=== PATIENT | female | born 1955 | race Caucasian/White ===

== ENCOUNTER → 2022-08-03 | Outpatient (CLI) | payer OTHER ==
--- NOTE | 2022-08-03 19:11 | Diagnostic Imaging Report ---
INDICATION: Routine screening. COMPARISON is made with prior mammograms 02/10/2016 and 10/29/2014. 2-D and 3-D bilateral screening mammography was performed with CAD. Both breasts are heterogeneously dense, limiting the sensitivity of mammography. A nodular density in the medial left breast is stable. Additional nodular densities in the left breast are stable. No new mass or malignant-appearing microcalcifications are seen. Axillae are unremarkable. IMPRESSION: BI-RADS Category 2 No mammographic features suspicious for malignancy are identified. ACR BI-RADS Category 2: Benign findings. Result letter will be mailed to the patient. Note: At least 10% of breast cancer is not imaged by mammography. Dictated by: Dictated on workstation # [id number]
== END ==
LOC: RAD 14:29
PROVIDERS: ATTEND Nurse Practitioner Family
DX: Z12.31 Encounter for screening mammogram for malignant neoplasm of breast (principal)
CPT/HCPCS: 77063; 77067

== ENCOUNTER → 2022-08-17 | Outpatient (CLI) | payer OTHER ==
[~2022-08-17] MED LIST: ASPI-999 PO; LOSA50TA63 PO; OMEP40CA6 PO
--- NOTE | 2022-08-18 09:10 | Diagnostic Imaging Report ---
CT Lung Screening INDICATION:67-year-old female, history of 35 pack years of smoking. Screening for lung cancer. TECHNIQUE: Noncontrast, low-dose CT imaging performed according to the lung cancer screening protocol. Auto Exposure Controls were utilize during the CT exam to meet ALARA standards for radiation dose reduction. COMPARISON:Chest radiographs October 29, 2014. FINDINGS: There is a large mass involving the right lower lobe, right upper lobe, and likely portions of the right middle lobe as well. The mass measures roughly 6.1 x 5.1 cm in axial extent and has a craniocaudal extent of approximately 8.6 cm. Mass directly abuts right-sided bronchi. There are contiguous areas of nodular septal thickening in the right lower lobe most likely relating to extension of malignancy. There are additional predominantly linear opacities in the right lower lobe likely reflecting atelectasis and/or scarring. There are also contiguous areas of fairly linear opacification in the right upper lobe which could relate to spread of malignancy versus adjacent atelectasis. There is an additional nodular opacity in the right upper lobe on axial image 47 posteriorly measuring 9 mm in size most likely relating to extension of malignancy at this site. There are findings of emphysema. There is a large calcified left lower lobe nodule measuring 1.8 cm in size most consistent with benign etiology and likely reflecting sequela of prior granulomatous disease. There is no identified noncalcified left-sided pulmonary nodule or lung mass. There is no additional identified focal airspace consolidation. There is no pneumothorax. There is no pleural effusion. The heart is not enlarged. There is no pericardial effusion. There are coronary artery calcifications and additional areas of atherosclerotic disease. The right-sided lung mass directly extends in the right hilar region. There is a right peritracheal lymph node on axial image 36 which measures 8 mm in short axis. There is no identified abnormally enlarged axillary lymph node which meets CT size criteria for adenopathy. There are splenic calcifications compatible with a sequela of prior granulomatous disease. There is no identified bone lesion concerning for a bone metastasis. IMPRESSION: 1. Very large right-sided lung mass involving the right lower lobe and right upper lobe and likely portions of the right middle lobe directly extending into the right hilar region highly likely reflecting malignancy. Sampling for definitive diagnosis is recommended. 2. Indeterminate 8 mm short axis right paratracheal lymph node. 3. No identified left-sided noncalcified pulmonary nodule or lung mass. 4. Findings of emphysema. 5. Findings compatible sequela prior granulomatous disease. LUNG-RADS CATEGORY:4B. Sampling for definitive diagnosis is recommended. Dictated by: Dictated on workstation # [id number]
== END ==
LOC: RAD 13:15
PROVIDERS: ATTEND Nurse Practitioner Family
DX: Z12.2 Encounter for screening for malignant neoplasm of respiratory organs (principal); J43.9 Emphysema, unspecified; R91.8 Other nonspecific abnormal finding of lung field; Z87.891 Personal history of nicotine dependence
CPT/HCPCS: 71271

== ENCOUNTER 2022-08-19 05:35 | Outpatient (CLI) | payer OTHER ==
[~2022-08-19] VITALS: Ht 157.5 cm; Wt 45.4 kg
[2022-08-19] MEDS ORDERED: LOSA50TA63 PO (11:28)
[2022-08-19] MEDS ORDERED: ASPI-999 PO (11:28)
[2022-08-19] MEDS ORDERED: OMEP40CA6 PO (11:28)
== END 2022-08-19 11:26 | disposition home or self-care (01) ==
LOC: PREOP 05:35
PROVIDERS: ATTEND Internal Medicine
DX: Z01.818 Encounter for other preprocedural examination (principal)

== ENCOUNTER 2022-08-28 07:37 | Day surgery (SDC) | payer OTHER ==
--- NOTE | 2022-08-16 02:19 | HISTORY AND PHYSICAL ---
DATE OF SERVICE: COLONOSCOPY HISTORY AND PHYSICAL DATE OF ADMISSION: 08/28/2022 HISTORY OF PRESENT ILLNESS: The patient is a 67-year-old white female referred by Dr. Quintanilla for her first screening colonoscopy. She is deemed to be of average risk as she is not aware of any family history for colon cancer. She denies abdominal pain. Does have some occasional constipation with no diarrhea and has had no melena or bright red blood per rectum. She denies any change in weight. PAST MEDICAL HISTORY: Significant for hypertension and gastroesophageal reflux, which is really well controlled on omeprazole. She reportedly has had some diverticulitis, but did not require hospitalization, but the oral antibiotics, it has been a number of months since her last flare. PAST SURGICAL HISTORY: She had an episiotomy following delivery that required revision several years ago. SOCIAL HISTORY: She is . 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 Occasional small volume alcohol use. FAMILY HISTORY: Mother had breast cancer, postmenopausal. Has one sister with hypertension. No other reported cancers in the family. REVIEW OF SYSTEMS: CONSTITUTIONAL: Denies night sweats, chills, fever, or change in weights. PULMONARY: Reports stable dyspnea on exertion, no dyspnea at rest. No cough, minimal nonpurulent sputum production, no hemoptysis. CARDIOVASCULAR: Denies chest pain, orthopnea, PND or pedal edema. PHYSICAL EXAMINATION: GENERAL: Reveals a white female, normal weight, in no acute distress, 100 pounds. VITAL SIGNS: Blood pressure 134/58. HEENT: Unremarkable. Sclerae nonicteric. CHEST: Clear. CARDIOVASCULAR: Reveals a regular rate and rhythm without murmur, S3 or S4. ABDOMEN: Soft, supple without mass, organomegaly or tenderness. EXTREMITIES: Reveal no cyanosis, clubbing or edema. ASSESSMENT AND PLAN: The patient is being set up for her first screening colonoscopy, deemed to be of average risk as noted above. Prep instructions were given, and questions were answered. I thank you for the referral of this pleasant lady. Job ID: [id number] DocumentID: [id number] Dictated Date: 08/04/2022 09:49:50 Carry In Worker Date: 08/04/2022 10:12:27 Dictated By: SHAREE JENSEN MD
[~2022-08-28] VITALS: Ht 157.5 cm; Wt 45.4 kg
[2022-08-28] MEDS ORDERED: LACTATED RINGERS 1,000 ML IV STA (07:41)
--- NOTE | 2022-08-28 08:01 | Pre-Op Note & Conscious Sedat ---
Pre-Operative Progress Note Date H&P Reviewed: Aug 28, 2022 Time H&P Reviewed: 08:01 History & Physical: H&P Reviewed, Patient Examed, No changes noted Pre-Op Diagnosis: screening Conscious Sedation Pre-Proced ASA Score 1 For ASA 3 and 4: Consider anesthesia and medical clearance. Also, for patients with a history of failed moderate sedation consider anesthesia. Airway Lungs Heart ASA score ASA 1: a normal healthy patient ASA 2: a patient with a mild systemic disease (mid diabetes, controlled hypertension, obesity ASA 3: a patient with a severe systemic disease that limits activity (angina, COPD, prior Myocardial infarction) ASA 4: a patient with an incapacitating disease that is a constant threat to life (CHF, renal failure) ASA 5: a moribund patient not expected to survive 24 hrs. (ruptured aneurysm) ASA 6: a declared brain- patient whose organs are being harvested. For emergent operations, add the letter E after the classification Mallampati Classification Grade 2 Sedation Plan Analgesia, Amnesia, Plan communicated to team members, Discussed options with patient/fam, Discussed risks with patient/fam The patient is an appropriate candidate to undergo the planned procedure, sedation, and anesthesia. The patient immediately re-assessed prior to indication. SHAREE JENSEN MD Aug 28, 2022 08:01
[2022-08-28 08:03] VITALS: BP 137/76
[2022-08-28] MEDS ORDERED: PROPOFOL INJECTION 50 ML IV ONE (08:35)
[2022-08-28 09:13] VITALS: BP 134/65
--- NOTE | 2022-08-28 09:14 | Progress Note-Post Operative ---
Post-Procedure Note Physician (s)/Independent Sales Representative (s) Physician SHAREE JENSEN MD Pre-Procedure Diagnosis Pre-Procedure Diagnosis: screening Post-Procedure Diagnosis Post-operative diagnosis: Colonoscopy was performed for screening purposes. Prior to undergoing colonoscopy digital rectal evaluation was performed. Anal sphincter tone was normal and the perianal reflexes intact. No abnormalities noted on digital inspection of the anal canal or distal rectal vault. The colonoscope was then inserted into the rectum and under direct visualization advanced to the cecum. The cecum was identified by identification of the cecal strap and appendiceal orifice. A careful inspection was made as the colonoscope was withdrawn. Quality of the prep was good. Findings: There are no evidence for internal or external hemorrhoids and the rectum was unremarkable. Moderate to severe diverticular disease while most prevalent in the cecum was noted throughout the colon including numerous diverticulum of the ascending colon without evidence for diverticulitis. There was no evidence for neoplasia or any other abnormality on colonoscopy today. A/P 1. Moderate to severe diverticular disease predominantly in the sigmoid colon as well as a sending colon with an otherwise normal colonoscopy to the cecum. There was no endoscopic evidence to suggest underlying diverticulitis. Would advocate consideration for repeat screening colonoscopy in 10 years. Sincerely Sharee Jensen MD. SHAERE JENSEN MD Aug 28, 2022 09:14
[2022-08-28 09:30] VITALS: BP 134/65
[2022-08-28 09:40] VITALS: BP 134/65
--- NOTE | 2022-08-28 11:28 | Anesthesia-General Post-Op ---
MAC Patient Condition Mental Status/LOC: Same as Preop Cardiovascular: Satisfactory Nausea/Vomiting: Absent Respiratory: Satisfactory Pain: Controlled Complications: Absent Post Op Complications Complications None Follow Up Care/Instructions Patient Instructions None needed. Anesthesiology Discharge Order Discharge Order Patient was doing well this morning after the procedure with no complaints, stable vital signs, no apparent adverse anesthesia problems. No complications reported per nursing. STEPHEN GARCIA DO Aug 28, 2022 11:28
== END 2022-08-28 09:50 | disposition home or self-care (01) ==
LOC: ENDO 07:37
PROVIDERS: ATTEND Internal Medicine
DX: Z12.11 Encounter for screening for malignant neoplasm of colon (principal); K57.30 Diverticulosis of large intestine without perforation or abscess without bleeding; K21.9 Gastro-esophageal reflux disease without esophagitis; Z79.899 Other long term (current) drug therapy; Z87.891 Personal history of nicotine dependence; Z28.310 Unvaccinated for COVID-19

== ENCOUNTER 2022-09-03 08:45 | Outpatient (CLI) | payer OTHER ==
[~2022-09-03] VITALS: Ht 157.5 cm; Wt 45.5 kg
[2022-09-03] VITALS (8 sets, daily range): BP systolic 112–151; BP diastolic 53–80
[2022-09-03] MEDS ORDERED: LOSA100T57 PO (09:02)
[2022-09-03 09:22] LABS: HEMATOCRIT 43 % (35-52); HEMOGLOBIN 13.9 g/dL (11.5-16.0); MEAN CORPUSCULAR HEMOGLOBIN 28 pg (25-34); MEAN CORPUSCULAR HGB CONC 32 g/dL (32-36); MEAN CORPUSCULAR VOLUME 86 fL (80-99); MEAN PLATELET VOLUME 9.5 fL (9.0-12.2); PLATELET COUNT 419 10^3/uL (130-400); WHITE BLOOD COUNT 11.6 10^3/uL (4.3-11.0)
[2022-09-03 09:39] LABS: PROTHROMBIN TIME PATIENT 13.7 SEC (12.2-14.7)
[2022-09-03] MEDS ORDERED: NS IV 1000 ML 1,000 ML IV STA (09:41)
[2022-09-03] MEDS ORDERED: MIDAZOLAM 2 MG/2 ML (VERSED) VIAL ONE (09:45)
[2022-09-03] MEDS ORDERED: MIDAZOLAM 2 MG/2 ML (VERSED) VIAL IVP ONE (09:45)
[2022-09-03] MEDS ORDERED: fentaNYL INJ 100 MCG/2 ML AMP IVP ONE (09:45)
[2022-09-03] MEDS ORDERED: LIDOCAINE 1% INJ 10 ML VIAL ONE (09:45)
[2022-09-03] MEDS ORDERED: fentaNYL INJ 100 MCG/2 ML AMP ONE (09:45)
[2022-09-03] MEDS ORDERED: LIDOCAINE 1% INJ 20 ML VIAL INJ ONE (09:45)
[2022-09-03] MEDS ORDERED: NS IV 1000 ML 1,000 ML ONE (09:45)
[2022-09-03] MEDS ORDERED: HYDROcodone/APAP 5 MG/325 MG (LORTAB) TAB PO PRN (10:45)
--- NOTE | 2022-09-03 12:00 | Pre-Op Note & Conscious Sedat ---
Pre-Operative Progress Note Date of Available H&P: Sep 03, 2022 Date H&P Reviewed: Sep 03, 2022 Time H&P Reviewed: 09:00 Pre-Op Diagnosis: lung mass Conscious Sedation Pre-Proced Time 09:00 ASA Score 2 For ASA 3 and 4: Consider anesthesia and medical clearance. Also, for patients with a history of failed moderate sedation consider anesthesia. Airway Lungs Heart ASA score ASA 1: a normal healthy patient ASA 2: a patient with a mild systemic disease (mid diabetes, controlled hypertension, obesity ASA 3: a patient with a severe systemic disease that limits activity (angina, COPD, prior Myocardial infarction) ASA 4: a patient with an incapacitating disease that is a constant threat to life (CHF, renal failure) ASA 5: a moribund patient not expected to survive 24 hrs. (ruptured aneurysm) ASA 6: a declared brain- patient whose organs are being harvested. For emergent operations, add the letter E after the classification Mallampati Classification Grade 2 Sedation Plan Analgesia, Amnesia, Plan communicated to team members, Discussed options with patient/fam, Discussed risks with patient/fam The patient is an appropriate candidate to undergo the planned procedure, sedation, and anesthesia. The patient immediately re-assessed prior to indication. TIA HUTCHINSON MD Sep 03, 2022 12:00
--- NOTE | 2022-09-03 12:25 | Diagnostic Imaging Report ---
INDICATION: Right lung mass. Patient presents for CT-guided biopsy. TECHNIQUE: All CT scans use one or more of the following dose optimizing techniques: automated exposure control, MA and/or KvP adjustment based on patient size and exam type or iterative reconstruction. The patient brought to the CT suite placed on table in the left side down decubitus position. Axial imaging through the chest was performed to evaluate appropriate entry site. The right posterior thorax was prepped and draped in usual sterile fashion. Procedure was performed utilizing conscious sedation with radiology nursing and constant patient monitoring. Patient was administered 2 mg of Versed intravenously and 50 micrograms of fentanyl intravenously. Total procedure time approximately 12 minutes. Small amount of 1% lidocaine was utilized for local anesthesia. 18-gauge coaxial Temno needle was advanced and placed with its tip along the margin of the mass in the right suprahilar region. 4 core biopsies were obtained. A blood patch was injected during needle removal. Follow-up imaging shows no complicating features. No pneumothorax is detected. Patient tolerated procedure well and was sent to same day surgery in satisfactory condition. Patient will get chest x-ray in 2 hours to assess for pneumothorax. IMPRESSION: Successful CT-guided right lung biopsy utilizing conscious sedation. Pathology results are currently pending. Dictated by: Dictated on workstation # [id number]
--- NOTE | 2022-09-03 14:59 | Diagnostic Imaging Report ---
Indication: Right lung biopsy earlier today. Time of Exam: 12:35 PM Expiratory radiograph of the chest was obtained. No pneumothorax is identified, status post right lung mass biopsy. Mass in the right perihilar region is noted. Calcified nodule in the left lower lobe is noted. IMPRESSION: No evidence of pneumothorax, status post right lung mass biopsy. Dictated by: Dictated on workstation # [id number]
== END 2022-09-03 13:20 | disposition home or self-care (01) ==
LOC: SDC 08:45
PROVIDERS: ATTEND Nurse Practitioner Family
DX: R91.8 Other nonspecific abnormal finding of lung field (principal)
CPT/HCPCS: 36415; 71045; 77012; 85027; 85610; 85730

== ENCOUNTER 2022-09-21 08:30 | Outpatient (CLI) | payer OTHER ==
[~2022-09-21] VITALS: Ht 156.2 cm; Wt 45.5 kg
[2022-09-21] VITALS (15 sets, daily range): BP systolic 105–146; BP diastolic 56–85
[~2022-09-21 08:30] MED LIST changes: +LOSA100T57 PO
[2022-09-21] MEDS ORDERED: NS IV 1000 ML 1,000 ML IV STA (09:00)
[2022-09-21] MEDS ORDERED: LIDOCAINE 1% INJ 30 ML (XYLOCAINE) VIAL INJ ONE (09:00)
[2022-09-21] MEDS ORDERED: MIDAZOLAM 2 MG/2 ML (VERSED) VIAL IVP ONE (09:00)
[2022-09-21] MEDS ORDERED: fentaNYL INJ 100 MCG/2 ML AMP IVP ONE (09:00)
[2022-09-21] MEDS ORDERED: HYDROcodone/APAP 5 MG/325 MG (LORTAB) TAB PO PRN (10:30)
--- NOTE | 2022-09-21 11:41 | Pre-Op Note & Conscious Sedat ---
Pre-Operative Progress Note Date of Available H&P: Sep 21, 2022 Date H&P Reviewed: Sep 21, 2022 Time H&P Reviewed: 09:00 Pre-Op Diagnosis: lung mass Conscious Sedation Pre-Proced Time 09:00 ASA Score 2 For ASA 3 and 4: Consider anesthesia and medical clearance. Also, for patients with a history of failed moderate sedation consider anesthesia. Airway Lungs Heart ASA score ASA 1: a normal healthy patient ASA 2: a patient with a mild systemic disease (mid diabetes, controlled hypertension, obesity ASA 3: a patient with a severe systemic disease that limits activity (angina, COPD, prior Myocardial infarction) ASA 4: a patient with an incapacitating disease that is a constant threat to life (CHF, renal failure) ASA 5: a moribund patient not expected to survive 24 hrs. (ruptured aneurysm) ASA 6: a declared brain- patient whose organs are being harvested. For emergent operations, add the letter E after the classification Mallampati Classification Grade 2 Sedation Plan Analgesia, Amnesia, Plan communicated to team members, Discussed options with patient/fam, Discussed risks with patient/fam The patient is an appropriate candidate to undergo the planned procedure, sedation, and anesthesia. The patient immediately re-assessed prior to indication. TIA HUTCHINSON MD Sep 21, 2022 11:41
--- NOTE | 2022-09-21 13:57 | Diagnostic Imaging Report ---
INDICATION: Status post right lung biopsy. TIME OF EXAM: 11:57 AM. COMPARISON: Correlation is made with the prior chest of 09/03/2022. FINDINGS: The right hilar mass is again noted. There is no pneumothorax status post right lung biopsy this morning. The calcified nodule in the left base is stable. There is no effusion. IMPRESSION: No evidence of pneumothorax status post right lung biopsy. Dictated on workstation # [id number]
--- NOTE | 2022-09-21 14:12 | Diagnostic Imaging Report ---
INDICATION: Right lung mass. Patient presents for repeat right lung biopsy. TECHNIQUE: All CT scans use one or more of the following dose optimizing techniques: automated exposure control, MA and/or KvP adjustment based on patient size and exam type or iterative reconstruction. Patient brought to the CT suite placed on table in the prone position. Axial imaging through the chest was performed to evaluate appropriate entry site. The right posterior thorax was prepped and draped in usual sterile fashion. Procedure was performed utilizing conscious sedation with radiology nursing and constant patient monitoring. Patient was given a total of 100 mcg of fentanyl intravenously and 1 mg of Versed intravenously. Total procedure time approximately 10 minutes. Small amount of 1% lidocaine was utilized for local anesthesia. 18-gauge coaxial Temno needle was advanced from a posterior approach and placed into the large right lower lobe mass along the periphery. A total of 4 core biopsies were obtained. The Biosentry closure device was then utilized to close the pleura. Followup imaging shows no complicating features. No pneumothorax is seen. Patient tolerated the procedure well and left the department in stable condition. IMPRESSION: Successful CT-guided core biopsy of the large right lower lobe mass, utilizing conscious sedation. Pathology results are currently pending. Dictated on workstation # [id number]
== END 2022-09-21 12:45 | disposition home or self-care (01) ==
LOC: SDC 08:30 → RAD 12:45
PROVIDERS: ATTEND Family Medicine
DX: R91.8 Other nonspecific abnormal finding of lung field (principal)
CPT/HCPCS: 71045; 77012; 99156; C2613

== ENCOUNTER → 2022-10-07 | Outpatient (CLI) | payer OTHER ==
[~2022-10-07] MED LIST changes: +GADOTERATE 0.5 MMOL/ML (CLARISCAN) 15 ML VIAL IV ONE
--- NOTE | 2022-10-07 11:41 | Diagnostic Imaging Report ---
CLINICAL INDICATION: Patient newly diagnosed with lung cancer. Cancer workup. EXAM: MRI of the brain performed without and with 8 cc of IV contrast. Sequences include axial DWI, ADC map, coronal gradient echo, axial FLAIR, axial T1, axial T2, axial T1 post IV contrast whole brain, coronal T1 fat-sat post IV contrast whole brain, and sagittal T1 fat-sat post IV contrast whole brain. COMPARISON: None. FINDINGS: There is no evidence of acute cerebral infarct, intracranial hemorrhage, or gross mass effect. There is no abnormal IV contrast enhancement. The brain parenchymal volume appears appropriate for patient's age. There are multiple focal and patchy areas of high T2 signal white matter changes involving both cerebral hemispheres and periventricular regions, likely representing chronic small vessel ischemic disease and leukoaraiosis. There is normal mello-white matter distinction. There is no significant midline shift or herniation. The tejon of [place] vascular structures show no gross abnormality as visualized. There is no evidence of hydrocephalus. The basal cisterns are unremarkable. The skull, extracranial soft tissue, and orbits are unremarkable. There is mild mucosal thickening involving the frontal sinus and anterior right ethmoid sinus region. There is minimal fluid within the right mastoid air cells. IMPRESSION: 1: There is no evidence of an acute intracranial process. There is no abnormal IV contrast enhancement and no evidence of metastatic disease. 2: Age-related brain parenchymal changes including chronic small vessel ischemic disease and leukoaraiosis. 3: Mild paranasal sinus disease. Dictated by: Dictated on workstation # [id number]
== END ==
LOC: RAD 09:09
PROVIDERS: ATTEND Internal Medicine Hematology & Oncology
DX: C34.90 Malignant neoplasm of unspecified part of unspecified bronchus or lung (principal); I67.82 Cerebral ischemia; I67.81 Acute cerebrovascular insufficiency; J32.9 Chronic sinusitis, unspecified
CPT/HCPCS: 70553

== ENCOUNTER → 2022-10-12 | Outpatient (CLI) | payer OTHER ==
[~2022-10-12] MED LIST changes: -GADOTERATE 0.5 MMOL/ML (CLARISCAN) 15 ML VIAL IV ONE
--- NOTE | 2022-10-12 16:13 | Diagnostic Imaging Report ---
INDICATION: [id number] lung cancer, initial staging. TECHNIQUE: Serum blood glucose level at the time of injection is 98 mg/dL. Patient was administered 14.3 mCi F-18 FDG intravenously and whole body PET imaging was performed. In addition, noncontrast CT was performed for attenuation correction and anatomic correlation. COMPARISON: No prior PET/CT studies are available for comparison. Comparison is made with CT chest screening study from 08/17/2022. FINDINGS: There is symmetric activity throughout the brain. Soft tissues of the neck are unremarkable. The previously noted large mass involving the right upper and right lower lobe does appear to be hypermetabolic with an SUV max of approximately 20. This does abut the right hilum. The left hilum is unremarkable. No definite mediastinal hypermetabolism is seen. No other pulmonary parenchymal areas of hypermetabolism are detected. Abdomen and pelvis demonstrate physiologic activity throughout the GI and tract. No suspicious sites of hypermetabolism are identified. Bilateral lower extremities are unremarkable. IMPRESSION: Hypermetabolic mass in the medial right upper and right lower lobe corresponding with known lung malignancy. No mediastinal, left hilar or distant metastases are identified. Dictated by: Dictated on workstation # [id number]
== END ==
LOC: RAD 09:00
PROVIDERS: ATTEND Internal Medicine Hematology & Oncology
DX: C34.90 Malignant neoplasm of unspecified part of unspecified bronchus or lung (principal)
CPT/HCPCS: 78816; A9552

== ENCOUNTER 2022-10-21 10:02 | Outpatient (RCR) | payer OTHER ==
[2022-10-14 10:08] LABS: BASOPHILS % (AUTO) 0 % (0-10); EOSINOPHILS # (AUTO) 0.1 10^3/uL (0.0-0.3); EOSINOPHILS % (AUTO) 1 % (0-10); HEMATOCRIT 43 % (35-52); HEMOGLOBIN 13.8 g/dL (11.5-16.0); LYMPHOCYTES # (AUTO) 1.4 10^3/uL (1.0-4.0); LYMPHOCYTES % (AUTO) 16 % (12-44); MEAN CORPUSCULAR HEMOGLOBIN 27 pg (25-34); MEAN CORPUSCULAR HGB CONC 32 g/dL (32-36); MEAN CORPUSCULAR VOLUME 86 fL (80-99); MEAN PLATELET VOLUME 9.4 fL (9.0-12.2); MONOCYTES # (AUTO) 0.5 10^3/uL (0.0-1.0); MONOCYTES % (AUTO) 5 % (0-12); NEUTROPHILS # (AUTO) 7.1 10^3/uL (1.8-7.8); NEUTROPHILS % (AUTO) 78 % (42-75); PLATELET COUNT 410 10^3/uL (130-400); WHITE BLOOD COUNT 9.1 10^3/uL (4.3-11.0)
[2022-10-14 10:25] LABS: ALBUMIN 4.1 GM/DL (3.2-4.5); BILIRUBIN,TOTAL 0.2 MG/DL (0.1-1.0); CALCIUM 9.7 MG/DL (8.5-10.1); CREATININE SERUM 0.73 MG/DL (0.60-1.30); POTASSIUM 4.4 MMOL/L (3.6-5.0)
[~2022-10-21] VITALS: Ht 157.5 cm; Wt 46.7 kg
== END 2022-10-24 | disposition home or self-care (01) ==
LOC: ONC 10:02
PROVIDERS: ATTEND Internal Medicine Hematology & Oncology
DX: C34.91 Malignant neoplasm of unspecified part of right bronchus or lung (principal)
CPT/HCPCS: 36415; 77290; 77334; 80053; 85025; 99204; 99205; 99213

== ENCOUNTER 2022-10-23 07:28 | Outpatient (CLI) | payer OTHER ==
[~2022-10-23] VITALS: Ht 157 cm; Wt 45.5 kg
== END 2022-10-23 12:23 | disposition home or self-care (01) ==
LOC: PREOP 07:28
PROVIDERS: ATTEND Surgery
DX: Z01.818 Encounter for other preprocedural examination (principal)

== ENCOUNTER 2022-10-30 07:07 | Day surgery (SDC) | payer BC, OTHER ==
[2022-10-30] VITALS (7 sets, daily range): BP systolic 99–113; BP diastolic 53–64
[~2022-10-30] VITALS: Ht 157 cm; Wt 45.5 kg
[2022-10-30] MEDS ORDERED: LACTATED RINGERS 1,000 ML IV PRN (07:15)
[2022-10-30] MEDS ORDERED: ceFAZolin INJECTION 1,000 MG in NS (IVPB) 50 ML IV ONE (07:15)
[2022-10-30] MEDS ORDERED: 0.9% SODIUM CHLORIDE PF INJ 20 ML VIAL ONE (07:46)
[2022-10-30] MEDS ORDERED: HEParin (CENTRAL IV FLUSH) 500 UNIT/5 ML SYR ONE (07:46)
[2022-10-30] MEDS ORDERED: BUP/EPI 0.25% 1:200,000 (MARCAINE) 30 ML VIAL ONE (07:46)
[2022-10-30] MEDS ORDERED: fentaNYL INJ 100 MCG/2 ML AMP ONE (08:53)
[2022-10-30] MEDS ORDERED: PROPOFOL INJECTION 50 ML IV ONE (08:53)
[2022-10-30] MEDS ORDERED: MIDAZOLAM 2 MG/2 ML (VERSED) VIAL ONE (08:54)
--- NOTE | 2022-10-30 09:56 | Progress Note-Pre Operative ---
Pre-Operative Progress Note Date of Available H&P: Oct 22, 2022 Date H&P Reviewed: Oct 30, 2022 Time H&P Reviewed: 09:31 History & Physical: H&P Reviewed, Patient Examed, No changes noted Pre-Operative Diagnosis: Lung CA, venous insufficiency DC KULKARNI DO Oct 30, 2022 09:56
[2022-10-30] MEDS ORDERED: PHENYLEPHRINE 100 MCG/ML 10 ML (ANESTHESIA) SYR ONE (11:32)
--- NOTE | 2022-10-30 11:38 | Progress Note-Post Operative ---
Post-Operative Progess Note Surgeon (s)/Community Artist (s) Surgeon DC KULKARNI DO Community Artist: MALCOLM Tidwell Pre-Operative Diagnosis Lung CA, venous insufficiency Post-Operative Diagnosis same Procedure & Operative Findings Date of Procedure 10/30/22 Procedure Performed/Findings PROCEDURE: Pasquale-Cath Placement The patient was taken to the operating suite, was prepped and draped in a sterile fashion. A surgical pause was performed. Local anesthetic was infiltrated at the clavicle and along the tract to the left anterior chest, where more local was placed so the pocket could be created. Using an 18 gauge finder needle with negative inspiration the left subclavian vein was accessed on the first attempt and dark nonpulsatile blood was withdrawn. The wire was inserted and fluoroscopy assured proper placement. The needle was removed. Fluoroscopy assured proper placement. The wire was then secured. A #11 blade scalpel was used to make an incision over the right chest and at the guidewire. Cautery was used to dissect down to the pectoral fascia. A pocket was created with blunt dissection. The dilator sheath was then advanced over the wire under fluoroscopy and the dilator and wire were removed. The Groshong catheter was inserted through the sheath and the sheath was then removed. The Groshong wire was removed. The catheter was then tunneled to the right chest pocket. Fluoroscopy was used to cut to length and this was then attached to the port which was then placed within the pocket. The port was then accessed without difficulty. It was then flushed with saline and then heparin. The subcutaneous tissues were then reapproximated using 3-0 Vicryl. Finally the skin was closed with 4-0 undyed monocryl, 3 interrupted sutures. The areas were then washed and dried. Skin Affix was placed over incision. The insertion point of the neck Skin Affix was placed over the incision. The patient tolerated the procedure well without complication and was taken to recovery room in stable condition. Anesthesia Type IV sedation by TOUR DRIVER Estimated Blood Loss Estimated blood loss (mL): scant Specimens/Packing Specimens Removed none DC KULKARNI DO Oct 30, 2022 11:38
--- NOTE | 2022-10-30 11:39 | Discharge Inst-Surgical ---
Discharge Inst-Surgical Depart Medication/Instructions New, Converted or Re-Newed RX: Other (use home meds) Patient Instructions Follow up Appt: Make appointment for 1 week. [phone] Instructions: May shower in 24 hours, no tub bath or soaking. Use incentive spirometer at home as directed. No Smoking Skin/Wound Care: May remove bandages in am. You need to leave the Dermabond on incision it will fall off on it's own. Symptoms to Report: Appetite Changes, Extremity Discoloration, Numbness/Tingling, Swelling Increased, Bleeding Excessive, Eyesight Changes, Pain Increased, Urine Color Change, Constipation(Persistent), Fever over 101 degree F, Pain/Pressure in chest, Urinating Difficulty, Cough Up/Vomit Blood, Heart Beat Irreg/Pounding, P ain/Pressure in jaw, Cramps in feet or legs, Lightheadedness, Pain/Pressure in shoulder, Diarrhea(Persistent), Memory Changes Suddenly, Questions/Concerns, Weight gain consecutive days, Dizziness/Fainting, Nausea/Vomiting, Shortness of Breath, Weight gain over 2 pounds If questions or concerns contact your physician Or seek help at emergency department. Activity Activity as Tolerated: Yes Activity Instructions: Avoid Stress to Incision Driving Instructions: You May Drive Diet Discharge Diet: No Restrictions Diet After 24 Hours: Clear Liquid if Nauseous If Any Problems/Questions/Issu: Contact Your Physician, Go to Emergency Room Skin/Wound Care Infection Signs and Symptoms: Increased Redness, Foul Odor of Wound, Increased Drainage, Skin Itchy or Has a Rash, Increased Swelling, Temperature Above 101 F Bathing Instructions: Shower Stitches/Adenike/Dermabond Dis: Dermabond Ice Pack: Ice On and Off Site DC KULKARNI DO Oct 30, 2022 11:39
[2022-10-30] MEDS ORDERED: HYDROmorphone 2 MG/ML VIAL (DILAUDID) IV ONE (11:45)
[2022-10-30] MEDS ORDERED: ONDANSETRON 4 MG/2 ML (SDV) Z0FRAN IVP PRN (11:45)
--- NOTE | 2022-10-30 13:31 | Diagnostic Imaging Report ---
INDICATION: Port placement. COMPARISON: None. Total fluoroscopy time: 6 seconds Total number of fluoroscopic images saved: 2 FINDINGS: Multiple intraoperative image intensifier views of the chest were obtained during Port-A-Cath placement. Images provided show left subclavian approach. Central tip terminates in the right atrium. Evaluation for pneumothorax is suboptimal due to fluoroscopic modality. Please note, interpreting radiologist was not present during the procedure. IMPRESSION: 1. Fluoroscopic guidance provided during Port-A-Cath placement, as above. Dictated by: Dictated on workstation # [id number]
--- NOTE | 2022-10-30 14:26 | Anesthesia-General Post-Op ---
MAC Patient Condition Mental Status/LOC: Same as Preop Cardiovascular: Satisfactory Nausea/Vomiting: Absent Respiratory: Satisfactory Pain: Controlled Complications: Absent Post Op Complications Complications None Follow Up Care/Instructions Patient Instructions None needed. Anesthesiology Discharge Order Discharge Order Patient is doing well, no complaints, stable vital signs, no apparent adverse anesthesia problems. No complications reported per nursing. HERMAN RINCON CRNA Oct 30, 2022 14:26
== END 2022-10-30 13:00 | disposition home or self-care (01) ==
LOC: SDC 07:07
PROVIDERS: ATTEND Surgery
DX: C34.91 Malignant neoplasm of unspecified part of right bronchus or lung (principal); I87.2 Venous insufficiency (chronic) (peripheral); K21.9 Gastro-esophageal reflux disease without esophagitis; Z87.891 Personal history of nicotine dependence; Z79.899 Other long term (current) drug therapy; Z28.310 Unvaccinated for COVID-19
CPT/HCPCS: 36561; 76000; 87081; C1788

== ENCOUNTER → 2022-11-24 | Outpatient (RCR) | payer BC, MEDICARE ==
[2022-11-02 11:28] LABS: BASOPHILS % (AUTO) 0 % (0-10); EOSINOPHILS # (AUTO) 0.1 10^3/uL (0.0-0.3); EOSINOPHILS % (AUTO) 1 % (0-10); HEMATOCRIT 41 % (35-52); HEMOGLOBIN 13.5 g/dL (11.5-16.0); LYMPHOCYTES # (AUTO) 1.8 10^3/uL (1.0-4.0); LYMPHOCYTES % (AUTO) 15 % (12-44); MEAN CORPUSCULAR HEMOGLOBIN 28 pg (25-34); MEAN CORPUSCULAR HGB CONC 33 g/dL (32-36); MEAN CORPUSCULAR VOLUME 85 fL (80-99); MEAN PLATELET VOLUME 9.5 fL (9.0-12.2); MONOCYTES # (AUTO) 0.7 10^3/uL (0.0-1.0); MONOCYTES % (AUTO) 6 % (0-12); NEUTROPHILS # (AUTO) 9.4 10^3/uL (1.8-7.8); NEUTROPHILS % (AUTO) 78 % (42-75); PLATELET COUNT 427 10^3/uL (130-400); WHITE BLOOD COUNT 12.1 10^3/uL (4.3-11.0)
[2022-11-02 11:57] LABS: ALBUMIN 4.2 GM/DL (3.2-4.5); BILIRUBIN,TOTAL 0.3 MG/DL (0.1-1.0); CALCIUM 10.2 MG/DL (8.5-10.1); CREATININE SERUM 0.79 MG/DL (0.60-1.30); POTASSIUM 4.1 MMOL/L (3.6-5.0); TOTAL PROTEIN 8.3 GM/DL (6.4-8.2)
[2022-11-16 09:55] LABS: BASOPHILS % (AUTO) 0 % (0-10); EOSINOPHILS # (AUTO) 0.1 10^3/uL (0.0-0.3); EOSINOPHILS % (AUTO) 1 % (0-10); HEMATOCRIT 38 % (35-52); HEMOGLOBIN 12.2 g/dL (11.5-16.0); LYMPHOCYTES % (AUTO) 13 % (12-44); MEAN CORPUSCULAR HEMOGLOBIN 28 pg (25-34); MEAN CORPUSCULAR HGB CONC 32 g/dL (32-36); MEAN CORPUSCULAR VOLUME 87 fL (80-99); MEAN PLATELET VOLUME 9.4 fL (9.0-12.2); MONOCYTES # (AUTO) 0.5 10^3/uL (0.0-1.0); MONOCYTES % (AUTO) 7 % (0-12); NEUTROPHILS # (AUTO) 5.9 10^3/uL (1.8-7.8); NEUTROPHILS % (AUTO) 78 % (42-75); PLATELET COUNT 366 10^3/uL (130-400); WHITE BLOOD COUNT 7.5 10^3/uL (4.3-11.0)
[2022-11-16 10:28] LABS: ALBUMIN 3.8 GM/DL (3.2-4.5); BILIRUBIN,TOTAL 0.3 MG/DL (0.1-1.0); CALCIUM 9.9 MG/DL (8.5-10.1); CREATININE SERUM 0.72 MG/DL (0.60-1.30); POTASSIUM 4.2 MMOL/L (3.6-5.0); TOTAL PROTEIN 7.6 GM/DL (6.4-8.2)
[2022-11-23 09:58] LABS: BASOPHILS % (AUTO) 0 % (0-10); EOSINOPHILS # (AUTO) 0.1 10^3/uL (0.0-0.3); EOSINOPHILS % (AUTO) 1 % (0-10); HEMATOCRIT 35 % (35-52); HEMOGLOBIN 11.2 g/dL (11.5-16.0); LYMPHOCYTES # (AUTO) 0.8 10^3/uL (1.0-4.0); LYMPHOCYTES % (AUTO) 13 % (12-44); MEAN CORPUSCULAR HEMOGLOBIN 28 pg (25-34); MEAN CORPUSCULAR HGB CONC 32 g/dL (32-36); MEAN CORPUSCULAR VOLUME 87 fL (80-99); MEAN PLATELET VOLUME 9.7 fL (9.0-12.2); MONOCYTES # (AUTO) 0.4 10^3/uL (0.0-1.0); MONOCYTES % (AUTO) 8 % (0-12); NEUTROPHILS # (AUTO) 4.3 10^3/uL (1.8-7.8); NEUTROPHILS % (AUTO) 77 % (42-75); PLATELET COUNT 310 10^3/uL (130-400); WHITE BLOOD COUNT 5.6 10^3/uL (4.3-11.0)
[2022-11-23 10:42] LABS: ALBUMIN 3.6 GM/DL (3.2-4.5); BILIRUBIN,TOTAL 0.3 MG/DL (0.1-1.0); CALCIUM 9.7 MG/DL (8.5-10.1); CREATININE SERUM 0.71 MG/DL (0.60-1.30); POTASSIUM 4.1 MMOL/L (3.6-5.0); TOTAL PROTEIN 7.1 GM/DL (6.4-8.2)
[~2022-11-24] VITALS: Ht 157.5 cm; Wt 46.7 kg
[~2022-11-24] MED LIST changes: +CARBOPLATIN IV SCH; +D5W IV SCH; +FAMOTIDINE 20MG/2ML IV (PEPCID) IV PRN; +FOSAPREPITANT (CANCER CENTER) 150 MG in NS (IVPB) CANCER CENTER ONLY 150 ML IV SCH; +HEParin (CENTRAL IV FLUSH) 500 UNIT/5 ML SYR IV PRN; +NORMAL SALINE IV SCH; +NS IV 1000 ML (CANCER CTR) IV SCH; +PACLITAXEL IV SCH; +PALONOSETRON HCL 0.25 MG, dexAMETHasone INJECTION 10 MG in NS (IVPB) 50 ML IV SCH; +diphenhydrAMINE 25 MG TAB (BENADRYL) PO ONE; +diphenhydrAMINE 50 MG/ML INJ (BENADRYL) IV PRN
== END | disposition home or self-care (01) ==
LOC: ONC 10-29 09:25
PROVIDERS: ATTEND Internal Medicine Hematology & Oncology
DX: Z51.11 Encounter for antineoplastic chemotherapy (principal); Z51.0 Encounter for antineoplastic radiation therapy; Z45.2 Encounter for adjustment and management of vascular access device; C34.91 Malignant neoplasm of unspecified part of right bronchus or lung
CPT/HCPCS: 36591; 77280; 77295; 77300; 77334; 77336; 77386; 77417; 77470; 80053; 85025; 96367; 96375; 96413; 96417; 99213

== ENCOUNTER 2022-12-13 13:52 | Emergency (ER) | payer BC, MEDICARE ==
[~2022-12-13] VITALS: Ht 154.9 cm; Wt 44.4 kg
[~2022-12-13 13:52] MED LIST changes: -CARBOPLATIN IV SCH; -D5W IV SCH; -FAMOTIDINE 20MG/2ML IV (PEPCID) IV PRN; -FOSAPREPITANT (CANCER CENTER) 150 MG in NS (IVPB) CANCER CENTER ONLY 150 ML IV SCH; -HEParin (CENTRAL IV FLUSH) 500 UNIT/5 ML SYR IV PRN; -NORMAL SALINE IV SCH; -NS IV 1000 ML (CANCER CTR) IV SCH; -PACLITAXEL IV SCH; -PALONOSETRON HCL 0.25 MG, dexAMETHasone INJECTION 10 MG in NS (IVPB) 50 ML IV SCH; -diphenhydrAMINE 25 MG TAB (BENADRYL) PO ONE; -diphenhydrAMINE 50 MG/ML INJ (BENADRYL) IV PRN
[2022-12-13] MEDS ORDERED: NYSTATIN ORAL SUSP 5 ML UDC PO STA (14:05)
[2022-12-13 14:15] LABS: BASOPHILS % (AUTO) 0 % (0-10); EOSINOPHILS % (AUTO) 0 % (0-10); HEMATOCRIT 38 % (35-52); HEMOGLOBIN 12.5 g/dL (11.5-16.0); LYMPHOCYTES # (AUTO) 0.6 10^3/uL (1.0-4.0); LYMPHOCYTES % (AUTO) 11 % (12-44); MEAN CORPUSCULAR HEMOGLOBIN 29 pg (25-34); MEAN CORPUSCULAR HGB CONC 33 g/dL (32-36); MEAN CORPUSCULAR VOLUME 87 fL (80-99); MEAN PLATELET VOLUME 9.2 fL (9.0-12.2); MONOCYTES # (AUTO) 0.4 10^3/uL (0.0-1.0); MONOCYTES % (AUTO) 8 % (0-12); NEUTROPHILS % (AUTO) 80 % (42-75); PLATELET COUNT 314 10^3/uL (130-400); WHITE BLOOD COUNT 4.9 10^3/uL (4.3-11.0)
[2022-12-13] MEDS ORDERED: TETANUS,DIPTH,PERTUSS P/F (BOOSTRIX) 0.5 ML VIAL IM ONE (14:15)
[2022-12-13] MEDS ORDERED: LACTATED RINGERS 1,000 ML IV ONE ×2 (14:15→16:00)
[2022-12-13] MEDS ORDERED: fentaNYL INJ 100 MCG/2 ML AMP IVP ONE ×2 (14:15→16:45)
--- NOTE | 2022-12-13 14:24 | ED Syncope ---
General Chief Complaint: Trauma-Non Activation Stated Complaint: FALL Nursing Triage Note: PT ARRIVED VIA EMS FOLLOWING A FALL AT HOME. PT STATED THAT SHE WAS IN THE SHOWER AND GOT DIZZY, PT WAS GETTING OUT OF THE SHOWER AND HAD LOC AND HIT HEAD ON A CABINET. PT HAS STAGE 3 LUNG CANCER AND IS CURRENTLY DOING RADIATION. PT DENIED C-COLLAR FOR EMS. PT HAS COMPLAINTS OF HER LEFT EYE BEING SORE AND THROAT HURTING FROM THE RADIATION. History of Present Illness Date Seen by Provider: Dec 13, 2022 Time Seen by Provider: 13:52 Initial Comments This 67-year-old woman presents to the emergency room with injury to her forehead after a fall at home. She was taking a shower and became dizzy. She walked out of the shower and had a syncopal episode. When she fell she struck her face on an unknown object causing a laceration and swelling between her brows. She is currently undergoing radiation therapy for lung cancer and is experiencing significant pain and difficulty with swallowing. She has had significant decreased oral intake because of this odynophagia and dysphagia. She does not believe she has had a tetanus immunization in many years. She rates her throat pain as 10 out of 10. She notes significant pain at the forehead contusion site as well. She arrives via EMS. Dr. Quintanilla is her primary care provider and Dr. Soto is her oncologist. She denies injury anywhere other than her head during the fall. Allergies and Home Medications Allergies Coded Allergies: No Known Drug Allergies (Unverified , 10/23/22) Patient Home Medication List Home Medication List Reviewed: Yes Losartan Potassium (Losartan Potassium) 100 Mg Tablet, 100 MG PO DAILY, (Reported) Entered as Reported by: BEATRICE TRIMBLE on 09/03/22 0902 Nystatin (Nystatin) 100,000 Unit/Ml Oral.susp, 5 ML PO Q6H Prescribed by: RO TEMPLETON on 12/13/22 171 Omeprazole (Omeprazole) 40 Mg Capsule.dr, 40 MG PO DAILY, (Reported) Entered as Reported by: TAMANNA DESAI on 08/19/22 1128 Ondansetron (Ondansetron Odt) 4 Mg Tab.rapdis, 4 MG SL Q4H PRN for NAUSEA/VOMITING Prescribed by: RO TEMPLETON on 12/13/22 171 Oxycodone HCl (Oxycodone HCl) 5 Mg/5 Ml Solution, 5 MG PO Q4H PRN for PAIN BREAKTROUGH Prescribed by: RO TEMPLETON on 12/13/221717 Review of Systems Constitutional: see HPI; No fever; weakness EENTM: see HPI Respiratory: no symptoms reported Cardiovascular: see HPI, syncope Gastrointestinal: see HPI Genitourinary: no symptoms reported : No Musculoskeletal: no symptoms reported Skin: see HPI Psychiatric/Neurological: No Symptoms Reported Past Ebulhnq-Ctzekg-Hbjeqj Hx Patient Social History Tobacco Use?: No Smoking Status: Former Smoker (Quit in October 2022) Substance use?: No Alcohol Use?: No Immunizations Up To Date First/Initial COVID19 Vaccinat: NO Second COVID19 Vaccination Ahsan: NO Third COVID19 Vaccination Date: NO Seasonal Allergies Seasonal Allergies: No Past Medical History Surgeries: Yes Tubal Ligation Respiratory: Yes (Lung cancer) COPD Currently Using CPAP: No Cardiac: Yes Hypertension Neurological: No : No Female Reproductive Disorders: Denies Genitourinary: No Gastrointestinal: Yes (Odynophagia) Gastroesophageal Reflux Musculoskeletal: No Endocrine: No HEENT: No Loss of Vision: Bilateral Hearing Impairment: Denies Cancer: Yes ("NEEDING PORT") Lung Did You Recieve Any Treatments: Yes What Type of Treatment Did You: Radiation Psychosocial: No Integumentary: No Blood Disorders: No Physical Exam Vital Signs Vital Signs - First Documented 12/13/22 13:55 Temp 36.0 Pulse 84 B/P (MAP) 137/80 (99) Pulse Ox 98 O2 Delivery Room Air Capillary Refill : Height, Weight, BMI Height: '" Weight: lbs. oz. kg; 18.00 BMI Method: General Appearance: WD/WN, Mild Distress, Thin HEENT: PERRL/EOMI, Pharynx Normal, Other (Leukoplakia on the tongue. 2.5 cm laceration between the brows with localized swelling.) Neck: Normal Inspection, Non Tender Cardiovascular: Regular Rate, Rhythm, No Edema, No Murmur Respiratory: Lungs Clear, Normal Breath Sounds, No Accessory Muscle Use Gastrointestinal: Non Tender, Soft Extremities: Normal Inspection, No Pedal Edema Neurologic/Psychiatric: Alert, Oriented x3, No Motor/Sensory Deficits, Normal Mood/Affect Cranial Nerves: Normal Hearing, Normal Speech, PERRL Motor/Sensory: No Motor Deficit, No Sensory Deficit Skin: Normal Color, Warm/Dry Progress/Results/Core Measures Results/Orders Lab Results Laboratory Tests Test 12/13/22 14:08 12/13/22 15:30 12/13/22 16:08 Range/Units White Blood Count 4.9 4.3-11.0 10^3/uL Red Blood Count 4.31 3.80-5.11 10^6/uL Hemoglobin 12.5 11.5-16.0 g/dL Hematocrit 38 35-52 % Mean Corpuscular Volume 87 80-99 fL Mean Corpuscular Hemoglobin 29 25-34 pg Mean Corpuscular Hemoglobin Concent 33 32-36 g/dL Red Cell Distribution Width 14.8 H 10.0-14.5 % Platelet Count 314 130-400 10^3/uL Mean Platelet Volume 9.2 9.0-12.2 fL Immature Granulocyte % (Auto) 0 % Neutrophils (%) (Auto) 80 H 42-75 % Lymphocytes (%) (Auto) 11 L 12-44 % Monocytes (%) (Auto) 8 0-12 % Eosinophils (%) (Auto) 0 0-10 % Basophils (%) (Auto) 0 0-10 % Neutrophils # (Auto) 4.0 1.8-7.8 10^3/uL Lymphocytes # (Auto) 0.6 L 1.0-4.0 10^3/uL Monocytes # (Auto) 0.4 0.0-1.0 10^3/uL Eosinophils # (Auto) 0.0 0.0-0.3 10^3/uL Basophils # (Auto) 0.0 0.0-0.1 10^3/uL Immature Granulocyte # (Auto) 0.0 0.0-0.1 10^3/uL Sodium Level 137 135-145 MMOL/L Potassium Level 4.0 3.6-5.0 MMOL/L Chloride Level 103 98-107 MMOL/L Carbon Dioxide Level 22 21-32 MMOL/L Anion Gap 12 5-14 MMOL/L Blood Urea Nitrogen 19 H 7-18 MG/DL Creatinine 0.85 0.60-1.30 MG/DL Estimat Glomerular Filtration Rate 76 BUN/Creatinine Ratio 22 Glucose Level 151 H 70-105 MG/DL Calcium Level 9.4 8.5-10.1 MG/DL Magnesium Level 1.8 1.6-2.4 MG/DL Influenza Type A (RT-PCR) Not Detected Not Detecte Influenza Type B (RT-PCR) Not Detected Not Detecte SARS-CoV-2 RNA (RT-PCR) Not Detected Not Detecte Urine Color ORANGE Urine Clarity CLEAR Urine pH 6.5 5-9 Urine Specific [place] 1.025 H 1.016-1.022 Urine Protein 2+ H NEGATIVE Urine Glucose (UA) NEGATIVE NEGATIVE Urine Ketones 2+ H NEGATIVE Urine Nitrite NEGATIVE NEGATIVE Urine Bilirubin 1+ H NEGATIVE Urine Urobilinogen 1.0 < = 1.0 MG/DL Urine Leukocyte Esterase NEGATIVE NEGATIVE Urine RBC (Auto) NEGATIVE NEGATIVE Urine RBC 0-2 /HPF Urine WBC 0-2 /HPF Urine Squamous Epithelial Cells NONE /HPF Urine Crystals NONE /LPF Urine Bacteria NEGATIVE /HPF Urine Casts PRESENT /LPF Urine Hyaline Casts 0-2 H /LPF Urine Mucus SMALL H /LPF Urine Culture Indicated NO My Orders Orders - RO GALVIN MD Basic Metabolic Panel (12/13/22 14:02) Cbc With Automated Diff (12/13/22 14:02) Magnesium (12/13/22 14:02) Ua Culture If Indicated (12/13/22 14:02) Lactated Ringers (Lr 1000 Ml Iv Solution (12/13/22 14:15) Implanted Port: Access (12/13/22 14:02) Fentanyl Inj (Sublimaze Injection) (12/13/22 14:15) Dipht,Pertuss(Acell),Tet Adult (Boostrix (12/13/22 14:15) Ekg Tracing (12/13/22 14:02) Monitor-Rhythm Ecg Trace Only (12/13/22 14:02) Ct Head/Face/Cervical Wo (12/13/22 14:02) Nystatin Oral Suspension (Mycostatin O (12/13/22 14:05) Covid 19 Inhouse Test (12/13/22 15:23) Influenza A And B By Pcr (12/13/22 15:23) Orthostatic Vital Signs (Adult (12/13/22 15:49) Lactated Ringers (Lr 1000 Ml Iv Solution (12/13/22 16:00) Let Solution (Let Solution) (12/13/22 16:45) Fentanyl Inj (Sublimaze Injection) (12/13/22 16:45) Ondansetron Injection (Zofran Injectio (12/13/22 17:30) Oxycodone 5 Mg/5ml Oral Soln (Roxicodone (12/13/22 17:30) Medications Given in ED Vital Signs/I&O 12/13/22 12/13/22 12/13/22 13:55 16:10 17:45 Temp 36.0 Pulse 84 86 92 93 98 B/P (MAP) 137/80 (99) 141/76 (97) 113/70 138/76 (96) 113/70 (84) Pulse Ox 98 96 O2 Delivery Room Air Room Air 12/14/22 00:00 Intake Total 2000 ml Balance 2000 ml Blood Pressure Mean: 99 Progress Progress Note : Progress Note Labs were assessed. BMP was relatively unremarkable. BUN was slightly elevated adding to suspicion of hypovolemia. Urinalysis demonstrated ketones and high specific gravity adding to suspicion of hypovolemia as the cause of her syncope. Patient was hydrated with a liter of IV fluid. She still had notable orthostasis when orthostatic blood pressures were measured. A second liter of IV fluid was administered. Tetanus immunization was administered. Pain was treated with fentanyl and topical LET. Pain was later treated with oral oxycodone suspension. Patient is receiving radiation to the chest and steroid therapy. I suspect she is experiencing some degree of esophageal candidiasis. She was therefore treated with nystatin swish and swallow and a prescription was provided. Oxycodone suspension was also prescribed as she has difficulty swallowing the pills. CT of the head, face and C-spine was reviewed by me and report reviewed. No acute injuries beyond the soft tissue swelling and laceration were noted. Laceration was cleaned by nursing staff and Steri-Strips were applied with Mastisol. EKG and telemetry were unremarkable. Incidental findings related to her cancer diagnosis were noted on the CT, and she was advised to discuss these with her oncologist. Initial ECG Impression Date: Dec 13, 2022 Initial ECG Impression Time: 14:35 Initial ECG Rate: 80 Initial ECG Rhythm: Normal Sinus Initial ECG Impression: Normal Comment Normal sinus rhythm with no ST elevation or depression. No abnormal intervals or axis deviation. Diagnostic Imaging Diagonstic Imaging: CT Plain Films/CT/US/NM/MRI: facial bones, c-spine, head Comments NAME: SMILEY BRASHER [facility] REC#: [id number] PT STATUS: DEP ER : 1955 PHYSICIAN: RO GALVIN MD ADMIT DATE: 12/13/22/ER Signed Date of Exam:12/13/22 CT HEAD/FACE/CERVICAL WO PROCEDURE: CT head, face, and cervical spine without contrast. TECHNIQUE: Multiple contiguous axial images were obtained through the head, neck, and facial bones without the use of intravenous contrast. Sagittal and coronal reformations through the cervical spine and facial bones were also performed. Auto Exposure Controls were utilized during the CT exam to meet ALARA standards for radiation dose reduction. INDICATION: Trauma, pain. COMPARISON: MRI dated 10/07/2022. FINDINGS: Mild atrophy. No intracranial hemorrhage. No intracranial mass, mass effect, midline shift, herniation, hydrocephalus or extra-axial fluid collection. Periventricular cerebral white matter hypodensities are present, most consistent with mild background chronic small vessel ischemic disease. Chronic lacunar infarction versus dilated perivascular space again noted within the inferior left basal ganglia. No CT evidence of an acute ischemic infarction. The orbits are unremarkable. Background vascular calcifications. The calvarium and extracalvarial soft tissues are unremarkable. The visualized paranasal sinuses are clear. Focal soft tissue defect and soft tissue gas is noted overlying the midline forehead without underlying suspicious radiopaque foreign body. This extends to overlie the nasal bridge. The calvarium is intact at this location. The paranasal sinuses are clear. The patient is edentulous with dentures in place. Mild leftward deviation of the nasal septum. Vanessa bullosa in the right middle turbinate. No temporomandibular joint dislocation with degenerative changes of the bilateral temporomandibular joints. No acute facial fracture. The orbits are unremarkable. Parapharyngeal fat is symmetric and well-maintained. Visualized muscles of mastication are unremarkable. Alignment of the cervical spine is well maintained. Alignment of the atlantooccipital joint is well maintained. Besides endplate degenerative changes, vertebral body heights are well-maintained. No acute fracture or dislocation. No destructive osseous process. Mild multilevel disc space height loss with multilevel small disc osteophyte complexes. Mild scattered facet joint degenerative changes and uncovertebral joint hypertrophy. No severe osseous central canal stenosis. A 2.6 cm pulmonary nodule is noted within the right upper lobe, incompletely visualized within the uysto-dc-toet. Background emphysematous changes. No apical pneumothorax. Left subclavian central venous catheter is partially visualized. A 1.1 x 0.8 cm ovoid soft tissue nodular density is noted associated with the right aryepiglottic fold, best seen on series 605 image 26 and series 19, image 42. The airway remains patent. IMPRESSION: No acute intracranial abnormality with mild atrophy and background chronic small vessel white matter ischemic disease. Soft tissue swelling and laceration involving the midline forehead without underlying calvarial fracture or suspicious radiopaque foreign body. No acute facial fracture. No acute osseous abnormality of the cervical spine with scattered degenerative changes. Right upper lobe pulmonary nodule is partially visualized. This is seen on prior imaging, including prior PET/CT. Unable to compare as this region is only minimally visualized. Soft tissue nodule associated with the right aryepiglottic fold. This could relate to a mass lesion versus focal cyst. Direct visualization is recommended. Additional findings as above. Dictated by: Dictated on workstation # [id number] Dict: 12/13/22 1451 Trans: 12/13/221757 [facility] [id number] Interpreted by: CAMILLE CARTWRIGHT MD Electronically signed by: CAMILLE CARTWRIGHT MD 12/13/221757 Departure Impression Primary Impression: Odynophagia Additional Impressions: Hypovolemia Fall on same level Qualified Codes: W18.30XA - Fall on same level, unspecified, initial encounter Syncope Qualified Codes: R55 - Syncope and collapse Laceration of forehead Qualified Codes: S01.81XA - Laceration without foreign body of other part of head, initial encounter Lung cancer Qualified Codes: C34.90 - Malignant neoplasm of unspecified part of unspecified bronchus or lung Esophageal candidiasis Disposition: 01 HOME, SELF-CARE Condition: Against Medical Advice Departure-Patient Inst. Referrals: SHARON QUINTANILLA MD (PCP/Family) Primary Care Physician Patient Instructions: Thrush Add. Discharge Instructions: If you are unable to take your pain medication tablets as prescribed, try the liquid oxycodone prescribed from the ER. Use Zofran (ondansetron) dissolved under the tongue every 4 hours as needed for nausea and vomiting. Use the nystatin swish and swallow every 6 hours to treat suspected yeast in the throat. If these measures are not significantly improving your pain, please discuss alternatives with Dr. Soto or Dr. Quintanilla. Drink plenty of clear liquids to stay well-hydrated. Call Dr. Soto's office in the morning to provide an update and receive further instructions. Please have him review your CT imaging. Return to the emergency room if you have worsening symptoms despite following th deshawn instructions. All discharge instructions reviewed with patient and/or family. Voiced understanding. Scripts Ondansetron (Ondansetron Odt) 4 Mg Tab.rapdis 4 MG SL Q4H PRN for NAUSEA/VOMITING, #10 TAB 2 Refills Prov: RO GALVIN MD 12/13/22 Oxycodone HCl (Oxycodone HCl) 5 Mg/5 Ml Solution 5 MG PO Q4H PRN for PAIN BREAKTROUGH, #60 ML Prov: RO GALVIN MD 12/13/22 Nystatin (Nystatin) 100,000 Unit/Ml Oral.susp 5 ML PO Q6H, #200 ML Prov: RO GALVIN MD 12/13/22 Copy Copies To 1: DIEGO SOTO MD Copies To 2: SHARON QUINTANILLA MD, JOSHUA T MD Dec 13, 2022 14:24
[2022-12-13 14:26] LABS: CALCIUM 9.4 MG/DL (8.5-10.1)
[2022-12-13 14:30] LABS: CREATININE SERUM 0.85 MG/DL (0.60-1.30)
[2022-12-13 14:32] LABS: MAGNESIUM 1.8 MG/DL (1.6-2.4)
--- NOTE | 2022-12-13 15:11 | Diagnostic Imaging Report ---
PROCEDURE: CT head, face, and cervical spine without contrast. TECHNIQUE: Multiple contiguous axial images were obtained through the head, neck, and facial bones without the use of intravenous contrast. Sagittal and coronal reformations through the cervical spine and facial bones were also performed. Auto Exposure Controls were utilized during the CT exam to meet ALARA standards for radiation dose reduction. INDICATION: Trauma, pain. COMPARISON: MRI dated 10/07/2022. FINDINGS: Mild atrophy. No intracranial hemorrhage. No intracranial mass, mass effect, midline shift, herniation, hydrocephalus or extra-axial fluid collection. Periventricular cerebral white matter hypodensities are present, most consistent with mild background chronic small vessel ischemic disease. Chronic lacunar infarction versus dilated perivascular space again noted within the inferior left basal ganglia. No CT evidence of an acute ischemic infarction. The orbits are unremarkable. Background vascular calcifications. The calvarium and extracalvarial soft tissues are unremarkable. The visualized paranasal sinuses are clear. Focal soft tissue defect and soft tissue gas is noted overlying the midline forehead without underlying suspicious radiopaque foreign body. This extends to overlie the nasal bridge. The calvarium is intact at this location. The paranasal sinuses are clear. The patient is edentulous with dentures in place. Mild leftward deviation of the nasal septum. Vanessa bullosa in the right middle turbinate. No temporomandibular joint dislocation with degenerative changes of the bilateral temporomandibular joints. No acute facial fracture. The orbits are unremarkable. Parapharyngeal fat is symmetric and well-maintained. Visualized muscles of mastication are unremarkable. Alignment of the cervical spine is well maintained. Alignment of the atlantooccipital joint is well maintained. Besides endplate degenerative changes, vertebral body heights are well-maintained. No acute fracture or dislocation. No destructive osseous process. Mild multilevel disc space height loss with multilevel small disc osteophyte complexes. Mild scattered facet joint degenerative changes and uncovertebral joint hypertrophy. No severe osseous central canal stenosis. A 2.6 cm pulmonary nodule is noted within the right upper lobe, incompletely visualized within the ryprc-xj-gyir. Background emphysematous changes. No apical pneumothorax. Left subclavian central venous catheter is partially visualized. A 1.1 x 0.8 cm ovoid soft tissue nodular density is noted associated with the right aryepiglottic fold, best seen on series 605 image 26 and series 19, image 42. The airway remains patent. IMPRESSION: No acute intracranial abnormality with mild atrophy and background chronic small vessel white matter ischemic disease. Soft tissue swelling and laceration involving the midline forehead without underlying calvarial fracture or suspicious radiopaque foreign body. No acute facial fracture. No acute osseous abnormality of the cervical spine with scattered degenerative changes. Right upper lobe pulmonary nodule is partially visualized. This is seen on prior imaging, including prior PET/CT. Unable to compare as this region is only minimally visualized. Soft tissue nodule associated with the right aryepiglottic fold. This could relate to a mass lesion versus focal cyst. Direct visualization is recommended. Additional findings as above. Dictated by: Dictated on workstation # [id number]
[2022-12-13 16:10] VITALS: BP_SYST 113; BP_SYST 138; BP_SYST 141; BP_DIAS 70; BP_DIAS 76
[2022-12-13 16:14] LABS: CLARITY,URINE CLEAR; COLOR,URINE ORANGE; GLUCOSE, URINE (UA) NEGATIVE (NEGATIVE); KETONES,URINE 2+ (NEGATIVE); LEUKOCYTE ESTERASE ,URINE NEGATIVE (NEGATIVE); NITRITE,URINE NEGATIVE (NEGATIVE); PH,URINE 6.5 (5-9); PROTEIN,URINE 2+ (NEGATIVE)
[2022-12-13 16:30] LABS: BACTERIA,URINE NEGATIVE /HPF; BILIRUBIN,URINE 1+ (NEGATIVE); RBC,URINE 0-2 /HPF; WBC,URINE 0-2 /HPF
[2022-12-13 16:31] LABS: HYALINE CASTS, URINE 0-2 /LPF
[2022-12-13] MEDS ORDERED: L.E.T. SOLUTION 3 ML SYR TOP ONE (16:45)
[2022-12-13] MEDS ORDERED: ONDA4TAB11 SL (17:17)
[2022-12-13] MEDS ORDERED: OXYC5SOL19 PO (17:17)
[2022-12-13] MEDS ORDERED: NYST1000 PO (17:17)
[2022-12-13] MEDS ORDERED: ONDANSETRON 4 MG/2 ML (SDV) Z0FRAN IVP ONE (17:30)
[2022-12-13] MEDS ORDERED: oxyCODONE 5 MG/5 ML ORAL SOLN (roxiCODONE) 5 ML UDC PO ONE (17:30)
[2022-12-13 17:45] VITALS: BP 113/70
== END 2022-12-13 17:49 | disposition home or self-care (01) ==
LOC: ER 13:52 → EDUNIT# 13:52 → ER 17:49
DX: S01.81XA Laceration without foreign body of other part of head, initial encounter (principal); E86.1 Hypovolemia; B37.81 Candidal esophagitis; C34.90 Malignant neoplasm of unspecified part of unspecified bronchus or lung; R13.10 Dysphagia, unspecified; R55 Syncope and collapse; K13.21 Leukoplakia of oral mucosa, including tongue; Z87.891 Personal history of nicotine dependence; Z20.822 Contact with and (suspected) exposure to COVID-19; Z28.310 Unvaccinated for COVID-19; Z23 Encounter for immunization; W18.30XA Fall on same level, unspecified, initial encounter; W22.8XXA Striking against or struck by other objects, initial encounter; Y92.009 Unspecified place in unspecified non-institutional (private) residence as the place of occurrence of the external cause
CPT/HCPCS: 36415; 70450; 70486; 72125; 80048; 81000; 83735; 85025; 87636; 90715; 93005; 93041

== ENCOUNTER 2022-12-18 09:25 | Outpatient (RCR) | payer BC, MEDICARE ==
[2022-11-30 09:59] LABS: BASOPHILS % (AUTO) 0 % (0-10); EOSINOPHILS # (AUTO) 0.1 10^3/uL (0.0-0.3); EOSINOPHILS % (AUTO) 1 % (0-10); HEMATOCRIT 36 % (35-52); HEMOGLOBIN 11.7 g/dL (11.5-16.0); LYMPHOCYTES # (AUTO) 0.6 10^3/uL (1.0-4.0); LYMPHOCYTES % (AUTO) 9 % (12-44); MEAN CORPUSCULAR HEMOGLOBIN 29 pg (25-34); MEAN CORPUSCULAR HGB CONC 33 g/dL (32-36); MEAN CORPUSCULAR VOLUME 87 fL (80-99); MEAN PLATELET VOLUME 9.4 fL (9.0-12.2); MONOCYTES # (AUTO) 0.6 10^3/uL (0.0-1.0); MONOCYTES % (AUTO) 9 % (0-12); NEUTROPHILS # (AUTO) 5.3 10^3/uL (1.8-7.8); NEUTROPHILS % (AUTO) 80 % (42-75); PLATELET COUNT 294 10^3/uL (130-400); WHITE BLOOD COUNT 6.6 10^3/uL (4.3-11.0)
[2022-11-30 10:34] LABS: ALBUMIN 3.7 GM/DL (3.2-4.5); BILIRUBIN,TOTAL 0.3 MG/DL (0.1-1.0); CALCIUM 9.4 MG/DL (8.5-10.1); CREATININE SERUM 0.7 MG/DL (0.60-1.30); TOTAL PROTEIN 7.1 GM/DL (6.4-8.2)
[2022-12-07 10:02] LABS: BASOPHILS % (AUTO) 0 % (0-10); EOSINOPHILS % (AUTO) 0 % (0-10); HEMATOCRIT 36 % (35-52); HEMOGLOBIN 11.6 g/dL (11.5-16.0); LYMPHOCYTES # (AUTO) 0.4 10^3/uL (1.0-4.0); LYMPHOCYTES % (AUTO) 8 % (12-44); MEAN CORPUSCULAR HEMOGLOBIN 28 pg (25-34); MEAN CORPUSCULAR HGB CONC 33 g/dL (32-36); MEAN CORPUSCULAR VOLUME 87 fL (80-99); MEAN PLATELET VOLUME 9.4 fL (9.0-12.2); MONOCYTES # (AUTO) 0.4 10^3/uL (0.0-1.0); MONOCYTES % (AUTO) 8 % (0-12); NEUTROPHILS # (AUTO) 4.4 10^3/uL (1.8-7.8); NEUTROPHILS % (AUTO) 82 % (42-75); PLATELET COUNT 330 10^3/uL (130-400); WHITE BLOOD COUNT 5.3 10^3/uL (4.3-11.0)
[2022-12-07 10:30] LABS: ALBUMIN 3.8 GM/DL (3.2-4.5); BILIRUBIN,TOTAL 0.4 MG/DL (0.1-1.0); CALCIUM 9.8 MG/DL (8.5-10.1); CREATININE SERUM 0.8 MG/DL (0.60-1.30); POTASSIUM 3.7 MMOL/L (3.6-5.0); TOTAL PROTEIN 7.2 GM/DL (6.4-8.2)
[2022-12-09 10:05] LABS: BASOPHILS % (AUTO) 1 % (0-10); EOSINOPHILS % (AUTO) 0 % (0-10); HEMATOCRIT 37 % (35-52); LYMPHOCYTES # (AUTO) 0.5 10^3/uL (1.0-4.0); LYMPHOCYTES % (AUTO) 8 % (12-44); MEAN CORPUSCULAR HEMOGLOBIN 28 pg (25-34); MEAN CORPUSCULAR HGB CONC 32 g/dL (32-36); MEAN CORPUSCULAR VOLUME 88 fL (80-99); MEAN PLATELET VOLUME 9.5 fL (9.0-12.2); MONOCYTES # (AUTO) 0.3 10^3/uL (0.0-1.0); MONOCYTES % (AUTO) 6 % (0-12); NEUTROPHILS # (AUTO) 4.8 10^3/uL (1.8-7.8); NEUTROPHILS % (AUTO) 85 % (42-75); PLATELET COUNT 332 10^3/uL (130-400); WHITE BLOOD COUNT 5.6 10^3/uL (4.3-11.0)
[2022-12-09 10:34] LABS: ALBUMIN 3.7 GM/DL (3.2-4.5); BILIRUBIN,TOTAL 0.3 MG/DL (0.1-1.0); CALCIUM 9.8 MG/DL (8.5-10.1); CREATININE SERUM 0.82 MG/DL (0.60-1.30); POTASSIUM 3.5 MMOL/L (3.6-5.0); TOTAL PROTEIN 7.1 GM/DL (6.4-8.2)
[2022-12-14 09:58] LABS: BASOPHILS % (AUTO) 0 % (0-10); EOSINOPHILS % (AUTO) 0 % (0-10); HEMATOCRIT 35 % (35-52); HEMOGLOBIN 11.5 g/dL (11.5-16.0); LYMPHOCYTES # (AUTO) 0.5 10^3/uL (1.0-4.0); LYMPHOCYTES % (AUTO) 10 % (12-44); MEAN CORPUSCULAR HEMOGLOBIN 29 pg (25-34); MEAN CORPUSCULAR HGB CONC 33 g/dL (32-36); MEAN CORPUSCULAR VOLUME 88 fL (80-99); MEAN PLATELET VOLUME 9.3 fL (9.0-12.2); MONOCYTES # (AUTO) 0.5 10^3/uL (0.0-1.0); MONOCYTES % (AUTO) 11 % (0-12); NEUTROPHILS # (AUTO) 3.6 10^3/uL (1.8-7.8); NEUTROPHILS % (AUTO) 78 % (42-75); PLATELET COUNT 297 10^3/uL (130-400); WHITE BLOOD COUNT 4.7 10^3/uL (4.3-11.0)
[2022-12-14 10:17] LABS: ALBUMIN 3.6 GM/DL (3.2-4.5); BILIRUBIN,TOTAL 0.3 MG/DL (0.1-1.0); CALCIUM 9.4 MG/DL (8.5-10.1); CREATININE SERUM 0.8 MG/DL (0.60-1.30); POTASSIUM 3.6 MMOL/L (3.6-5.0); TOTAL PROTEIN 6.8 GM/DL (6.4-8.2)
[~2022-12-18 09:25] MED LIST changes: +CARBOPLATIN IV SCH; +D5W IV SCH; +FAMOTIDINE 20MG/2ML IV (PEPCID) IV PRN; +FOSAPREPITANT (CANCER CENTER) 150 MG in NS (IVPB) CANCER CENTER ONLY 150 ML IV SCH; +HEParin (CENTRAL IV FLUSH) 500 UNIT/5 ML SYR IV PRN; +NORMAL SALINE IV SCH; +NS IV 1000 ML (CANCER CTR) IV SCH; +NYST1000 PO; +ONDA4TAB11 SL; +OXYC5SOL19 PO; +PACLITAXEL IV SCH; +PALONOSETRON HCL 0.25 MG, dexAMETHasone INJECTION 10 MG in NS (IVPB) 50 ML IV SCH; +PALONOSETRON HCL 0.25 MG, dexAMETHasone INJECTION 20 MG in NS (IVPB) 50 ML IV SCH; +diphenhydrAMINE 50 MG/ML INJ (BENADRYL) IV PRN
== END 2022-12-22 | disposition home or self-care (01) ==
LOC: ONC 09:25
PROVIDERS: ATTEND Internal Medicine Hematology & Oncology
DX: Z51.0 Encounter for antineoplastic radiation therapy (principal); Z48.89 Encounter for other specified surgical aftercare; C34.91 Malignant neoplasm of unspecified part of right bronchus or lung
CPT/HCPCS: 36591; 77307; 77334; 77336; 77417; 80053; 85025; 96360; 96367; 96375; 96413; 96417; 99212

== ENCOUNTER 2023-01-21 10:29 | Outpatient (RCR) | payer BC, MEDICARE ==
[2023-01-11 10:37] LABS: BASOPHILS % (AUTO) 0 % (0-10); EOSINOPHILS % (AUTO) 1 % (0-10); HEMATOCRIT 36 % (35-52); HEMOGLOBIN 11.6 g/dL (11.5-16.0); LYMPHOCYTES # (AUTO) 0.7 10^3/uL (1.0-4.0); LYMPHOCYTES % (AUTO) 14 % (12-44); MEAN CORPUSCULAR HEMOGLOBIN 29 pg (25-34); MEAN CORPUSCULAR HGB CONC 32 g/dL (32-36); MEAN CORPUSCULAR VOLUME 91 fL (80-99); MEAN PLATELET VOLUME 8.8 fL (9.0-12.2); MONOCYTES # (AUTO) 0.4 10^3/uL (0.0-1.0); MONOCYTES % (AUTO) 9 % (0-12); NEUTROPHILS # (AUTO) 3.7 10^3/uL (1.8-7.8); NEUTROPHILS % (AUTO) 76 % (42-75); PLATELET COUNT 314 10^3/uL (130-400); WHITE BLOOD COUNT 4.9 10^3/uL (4.3-11.0)
[2023-01-11 10:56] LABS: ALBUMIN 3.7 GM/DL (3.2-4.5); BILIRUBIN,TOTAL 0.3 MG/DL (0.1-1.0); CREATININE SERUM 0.95 MG/DL (0.60-1.30); TOTAL PROTEIN 7.1 GM/DL (6.4-8.2)
[2023-01-18 10:31] LABS: BASOPHILS % (AUTO) 0 % (0-10); EOSINOPHILS % (AUTO) 1 % (0-10); HEMATOCRIT 36 % (35-52); HEMOGLOBIN 11.9 g/dL (11.5-16.0); LYMPHOCYTES # (AUTO) 0.6 10^3/uL (1.0-4.0); LYMPHOCYTES % (AUTO) 26 % (12-44); MEAN CORPUSCULAR HEMOGLOBIN 30 pg (25-34); MEAN CORPUSCULAR HGB CONC 33 g/dL (32-36); MEAN CORPUSCULAR VOLUME 90 fL (80-99); MEAN PLATELET VOLUME 9.4 fL (9.0-12.2); MONOCYTES # (AUTO) 0.1 10^3/uL (0.0-1.0); MONOCYTES % (AUTO) 4 % (0-12); NEUTROPHILS # (AUTO) 1.7 10^3/uL (1.8-7.8); NEUTROPHILS % (AUTO) 68 % (42-75); PLATELET COUNT 281 10^3/uL (130-400); WHITE BLOOD COUNT 2.5 10^3/uL (4.3-11.0)
[2023-01-18 10:53] LABS: ALBUMIN 3.7 GM/DL (3.2-4.5); BILIRUBIN,TOTAL 0.2 MG/DL (0.1-1.0); CALCIUM 9.4 MG/DL (8.5-10.1); CREATININE SERUM 0.81 MG/DL (0.60-1.30); POTASSIUM 4.1 MMOL/L (3.6-5.0); TOTAL PROTEIN 6.9 GM/DL (6.4-8.2)
[~2023-01-21] VITALS: Ht 157.5 cm; Wt 43.1 kg
[~2023-01-21 10:29] MED LIST changes: -PALONOSETRON HCL 0.25 MG, dexAMETHasone INJECTION 10 MG in NS (IVPB) 50 ML IV SCH
== END 2023-01-22 | disposition home or self-care (01) ==
LOC: ONC 10:29
PROVIDERS: ATTEND Internal Medicine Hematology & Oncology
DX: Z51.11 Encounter for antineoplastic chemotherapy (principal); C34.90 Malignant neoplasm of unspecified part of unspecified bronchus or lung; Z48.89 Encounter for other specified surgical aftercare
CPT/HCPCS: 36415; 36591; 80053; 85025; 96367; 96375; 96413; 96415; 96417; 99213

== ENCOUNTER → 2023-02-08 | Outpatient (CLI) | payer BC, MEDICARE ==
[~2023-02-08] MED LIST changes: -CARBOPLATIN IV SCH; +CATHETER FLUSH 10 ML SYR IV PRN; -D5W IV SCH; -FAMOTIDINE 20MG/2ML IV (PEPCID) IV PRN; -FOSAPREPITANT (CANCER CENTER) 150 MG in NS (IVPB) CANCER CENTER ONLY 150 ML IV SCH; -HEParin (CENTRAL IV FLUSH) 500 UNIT/5 ML SYR IV PRN; +HOLD METFORMIN - RECEIVED CONTRAST 20 ML VIAL IV SCH; +IOHEXOL 300 MG/ML 100 ML (OMNIPAQUE 300) VIAL IV ONE; +IOHEXOL 350 MG/ML 100 ML (OMNIPAQUE 350) VIAL IV ONE; -NORMAL SALINE IV SCH; +NS 100 ML (IVPB) BAG IV ONE; -NS IV 1000 ML (CANCER CTR) IV SCH; -PACLITAXEL IV SCH; -PALONOSETRON HCL 0.25 MG, dexAMETHasone INJECTION 20 MG in NS (IVPB) 50 ML IV SCH; -diphenhydrAMINE 50 MG/ML INJ (BENADRYL) IV PRN
--- NOTE | 2023-02-08 16:00 | Diagnostic Imaging Report ---
PROCEDURE: CT chest, abdomen, and pelvis with contrast. TECHNIQUE: Multiple contiguous axial images were obtained through the chest, abdomen, and pelvis after the administration of intravenous contrast. Auto Exposure Controls were utilized during the CT exam to meet ALARA standards for radiation dose reduction. INDICATION: Lung cancer and recent completion of chemotherapy. COMPARISON: 08/17/2022 CT CHEST: There is a persistent irregular spiculated mass along the posterior aspect of the right hilum which extends into the upper and lower lobes. This has shown interval decrease in volume, now measuring approximately 4.5 x 4.0 cm compared with 6.1 x 5.1 cm on the previous examination. There is background centrilobular emphysema. There is no pathologically enlarged adenopathy within the mediastinum or contralateral hilum. Coronary artery calcification is noted. There is background centrilobular emphysema without evidence of significant pleural or pericardial fluid. There has been placement of left anterior chest wall port. Densely calcified left lower lobe nodule has not changed. There are also calcified granulomas within the spleen with moderate atherosclerotic disease involving the visible upper abdominal aorta. There is no focal hepatic lesion. No gallbladder, pancreatic, adrenal gland or renal abnormality is seen. No free fluid is seen within the abdomen or pelvis. Unopacified bladder is unremarkable in appearance. There is no evidence of pathologically enlarged adenopathy. IMPRESSION: Persistent mass in the right hilum showing decreased volume when compared to previous study indicating at least partial treatment response. Clinical correlation is recommended. PET imaging may be of use for determination of residual tumor at the primary location as well as staging of potential metastasis. Otherwise, no CT evidence of acute abnormality or metastatic focus. Dictated by: Dictated on workstation # [id number]
== END ==
LOC: RAD 08:45
PROVIDERS: ATTEND Internal Medicine Hematology & Oncology
DX: C34.91 Malignant neoplasm of unspecified part of right bronchus or lung (principal); Z92.21 Personal history of antineoplastic chemotherapy
CPT/HCPCS: 71260; 74177

== ENCOUNTER → 2023-02-09 | Outpatient (CLI) | payer BC, MEDICARE ==
[~2023-02-09] MED LIST changes: -CATHETER FLUSH 10 ML SYR IV PRN; -HOLD METFORMIN - RECEIVED CONTRAST 20 ML VIAL IV SCH; -IOHEXOL 300 MG/ML 100 ML (OMNIPAQUE 300) VIAL IV ONE; -IOHEXOL 350 MG/ML 100 ML (OMNIPAQUE 350) VIAL IV ONE; -NS 100 ML (IVPB) BAG IV ONE
--- NOTE | 2023-02-09 15:48 | Diagnostic Imaging Report ---
INDICATION: Non-small cell lung carcinoma. TECHNIQUE: The patient was administered 26.6 mCi technetium 99m MDP intravenously and whole-body imaging was performed after a three-hour delay. No prior whole-body bone scans are available for comparison. There is normal uptake of activity by the axial and appendicular skeleton. There is uptake by the kidneys with excretion into the urinary bladder. No suspicious focus of tracer accumulation is seen to suggest osseous metastatic disease. IMPRESSION: No scintigraphic evidence of osseous metastatic disease. Dictated by: Dictated on workstation # [id number]
== END ==
LOC: CARD 11:36
PROVIDERS: ATTEND Internal Medicine Hematology & Oncology
DX: C34.90 Malignant neoplasm of unspecified part of unspecified bronchus or lung (principal)
CPT/HCPCS: 78306; A9503

== ENCOUNTER 2023-02-17 10:19 | Outpatient (RCR) | payer BC, MEDICARE ==
[2023-02-01 09:26] LABS: BASOPHILS % (AUTO) 0 % (0-10); EOSINOPHILS % (AUTO) 0 % (0-10); HEMATOCRIT 37 % (35-52); LYMPHOCYTES % (AUTO) 17 % (12-44); MEAN CORPUSCULAR HEMOGLOBIN 30 pg (25-34); MEAN CORPUSCULAR HGB CONC 32 g/dL (32-36); MEAN CORPUSCULAR VOLUME 93 fL (80-99); MEAN PLATELET VOLUME 8.7 fL (9.0-12.2); MONOCYTES # (AUTO) 0.5 10^3/uL (0.0-1.0); MONOCYTES % (AUTO) 9 % (0-12); NEUTROPHILS # (AUTO) 4.3 10^3/uL (1.8-7.8); NEUTROPHILS % (AUTO) 74 % (42-75); PLATELET COUNT 351 10^3/uL (130-400); WHITE BLOOD COUNT 5.8 10^3/uL (4.3-11.0)
[2023-02-01 09:47] LABS: ALBUMIN 3.9 GM/DL (3.2-4.5); BILIRUBIN,TOTAL 0.2 MG/DL (0.1-1.0); CALCIUM 9.8 MG/DL (8.5-10.1); CREATININE SERUM 0.85 MG/DL (0.60-1.30); TOTAL PROTEIN 7.2 GM/DL (6.4-8.2)
[2023-02-09 12:17] LABS: BASOPHILS % (AUTO) 0 % (0-10); EOSINOPHILS % (AUTO) 0 % (0-10); HEMATOCRIT 37 % (35-52); HEMOGLOBIN 12.2 g/dL (11.5-16.0); LYMPHOCYTES # (AUTO) 0.6 10^3/uL (1.0-4.0); LYMPHOCYTES % (AUTO) 12 % (12-44); MEAN CORPUSCULAR HEMOGLOBIN 30 pg (25-34); MEAN CORPUSCULAR HGB CONC 33 g/dL (32-36); MEAN CORPUSCULAR VOLUME 92 fL (80-99); MEAN PLATELET VOLUME 9.9 fL (9.0-12.2); MONOCYTES # (AUTO) 0.3 10^3/uL (0.0-1.0); MONOCYTES % (AUTO) 5 % (0-12); NEUTROPHILS # (AUTO) 3.8 10^3/uL (1.8-7.8); NEUTROPHILS % (AUTO) 82 % (42-75); PLATELET COUNT 274 10^3/uL (130-400); WHITE BLOOD COUNT 4.7 10^3/uL (4.3-11.0)
[~2023-02-17 10:19] MED LIST changes: +CARBOPLATIN IV SCH; +D5W IV SCH; +FAMOTIDINE 20MG/2ML IV (PEPCID) ONE; +FOSAPREPITANT (CANCER CENTER) 150 MG in NS (IVPB) CANCER CENTER ONLY 150 ML IV SCH; +NORMAL SALINE IV SCH; +NS IV 1000 ML 1,000 ML ONE; +PACLITAXEL IV SCH; +PALONOSETRON HCL 0.25 MG, dexAMETHasone INJECTION 20 MG in NS (IVPB) 50 ML IV SCH; +diphenhydrAMINE 50 MG/ML INJ (BENADRYL) ONE
[2023-02-18] MEDS ORDERED: NS IV 1000 ML (CANCER CTR) IV SCH (11:45)
[2023-02-18] MEDS ORDERED: DURVALUMAB IV SCH (11:45)
[2023-02-18] MEDS ORDERED: NS IV SCH (11:45)
[2023-02-18] MEDS ORDERED: HEParin (CENTRAL IV FLUSH) 500 UNIT/5 ML SYR IV PRN (11:45)
== END 2023-02-21 | disposition home or self-care (01) ==
LOC: ONC 10:19
PROVIDERS: ATTEND Internal Medicine Hematology & Oncology
DX: Z51.11 Encounter for antineoplastic chemotherapy (principal); Z45.2 Encounter for adjustment and management of vascular access device; C34.90 Malignant neoplasm of unspecified part of unspecified bronchus or lung
CPT/HCPCS: 36591; 80053; 85025; 96367; 96375; 96413; 96415; 96417

== ENCOUNTER 2023-03-08 09:06 | Emergency (ER) | payer BC, MEDICARE ==
[~2023-03-08] VITALS: Ht 155 cm; Wt 44.0 kg
[~2023-03-08 09:06] MED LIST changes: -CARBOPLATIN IV SCH; -D5W IV SCH; -FAMOTIDINE 20MG/2ML IV (PEPCID) ONE; -FOSAPREPITANT (CANCER CENTER) 150 MG in NS (IVPB) CANCER CENTER ONLY 150 ML IV SCH; -NORMAL SALINE IV SCH; -NS IV 1000 ML 1,000 ML ONE; -PACLITAXEL IV SCH; -PALONOSETRON HCL 0.25 MG, dexAMETHasone INJECTION 20 MG in NS (IVPB) 50 ML IV SCH; -diphenhydrAMINE 50 MG/ML INJ (BENADRYL) ONE
[2023-03-08] MEDS ORDERED: morphine INJ 10 MG/ML 1ML (SYR OR VIAL) IVP STA (09:52)
--- NOTE | 2023-03-08 09:55 | ED Abdominal Pain ---
General Chief Complaint: Abdominal/GI Problems Stated Complaint: RT SIDE PAIN | NON-INJ Nursing Triage Note: PT C/O RIGHT SIDED ABDOMINAL PAIN X 3 DAYS. DENIES N/V/D. LAST BM WAS WEDNESDAY NIGHT. Source of Information: Patient Exam Limitations: No Limitations History of Present Illness Date Seen by Provider: March 08, 2023 Time Seen by Provider: 09:11 Initial Comments 68-year-old female with past medical history of hypertension, chronic pain, and lung cancer coming in due to right lower quadrant abdominal pain. The pains been going on for 3 days, essentially is constant, sharp, does have burning with urination, no nausea, no vomiting, no fever. She is chronically constipated with the hydrocodone she takes, last bowel movement was Wednesday which is not unusual for her. She denies any history of abdominal surgeries. Otherwise denying any vaginal bleeding or discharge, rash, chest pain, shortness of breath, or any other concerns. Allergies and Home Medications Allergies Coded Allergies: No Known Drug Allergies (Unverified , 10/23/22) Patient Home Medication List Home Medication List Reviewed: Yes Losartan Potassium (Losartan Potassium) 100 Mg Tablet, 100 MG PO DAILY, (Reported) Entered as Reported by: BEATRICE TRIMBLE on 09/03/22 0902 Nystatin (Nystatin) 100,000 Unit/Ml Oral.susp, 5 ML PO Q6H Prescribed by: RO TEMPLETON on 12/13/221716 Omeprazole (Omeprazole) 40 Mg Capsule.dr, 40 MG PO DAILY, (Reported) Entered as Reported by: TAMANNA DESAI on 08/19/22 1128 Ondansetron (Ondansetron Odt) 4 Mg Tab.rapdis, 4 MG SL Q4H PRN for NAUSEA/VOMITING Prescribed by: RO TEMPLETON on 12/13/221716 Oxycodone HCl (Oxycodone HCl) 5 Mg/5 Ml Solution, 5 MG PO Q4H PRN for PAIN BREAKTROUGH Prescribed by: RO TEMPLETON on 12/13/221717 Review of Systems Review of Systems Constitutional: No fever EENTM: No Symptoms Reported Respiratory: No Symptoms Reported Cardiovascular: No Symptoms Reported Gastrointestinal: See HPI Genitourinary: See HPI Musculoskeletal: no symptoms reported Past Tkdtjix-Oplegf-Rcyrxd Hx Patient Social History Tobacco Use?: No Substance use?: No Alcohol Use?: No Pt feels they are or have been: No Immunizations Up To Date First/Initial COVID19 Vaccinat: NO Second COVID19 Vaccination Ahsan: NO Third COVID19 Vaccination Date: NO Seasonal Allergies Seasonal Allergies: No Past Medical History Surgeries: Yes Tubal Ligation Respiratory: Yes COPD Currently Using CPAP: No Cardiac: Yes Hypertension Neurological: No Female Reproductive Disorders: Denies Genitourinary: No Gastrointestinal: Yes Gastroesophageal Reflux Musculoskeletal: No Endocrine: No HEENT: No Loss of Vision: Bilateral Hearing Impairment: Denies Cancer: Yes ("NEEDING PORT") Lung Did You Recieve Any Treatments: No Psychosocial: No Integumentary: No Blood Disorders: No Physical Exam Vital Signs Vital Signs - First Documented 03/08/23 09:30 Temp 36.6 Pulse 100 Resp 18 B/P (MAP) 133/92 (106) Pulse Ox 99 O2 Delivery Room Air Capillary Refill : Less Than 3 Seconds Height/Weight/BMI Height: '" Weight: lbs. oz. kg; 18.00 BMI Method: General Appearance: WD/WN, no apparent distress HEENT: PERRL/EOMI, normal ENT inspection, pharynx normal Neck: non-tender, full range of motion, supple, normal inspection Respiratory: chest non-tender, lungs clear, normal breath sounds, no respiratory distress, no accessory muscle use Cardiovascular: regular rate, rhythm, no edema, no murmur Gastrointestinal: normal bowel sounds, soft; No distended, No guarding, No rebound; tenderness Extremities: normal range of motion, non-tender, normal inspection, no pedal edema, no calf tenderness, normal capillary refill Back: normal inspection, no CVA tenderness Neurologic/Psychiatric: no motor/sensory deficits, alert, normal mood/affect Skin: normal color, warm/dry Progress/Results/Core Measures Results/Orders Lab Results Laboratory Tests Test 03/08/23 09:35 03/08/23 09:40 Range/Units White Blood Count 6.0 4.3-11.0 10^3/uL Red Blood Count 3.99 3.80-5.11 10^6/uL Hemoglobin 12.1 11.5-16.0 g/dL Hematocrit 38 35-52 % Mean Corpuscular Volume 96 80-99 fL Mean Corpuscular Hemoglobin 30 25-34 pg Mean Corpuscular Hemoglobin Concent 32 32-36 g/dL Red Cell Distribution Width 14.3 10.0-14.5 % Platelet Count 430 H 130-400 10^3/uL Mean Platelet Volume 9.4 9.0-12.2 fL Immature Granulocyte % (Auto) 1 % Neutrophils (%) (Auto) 83 H 42-75 % Lymphocytes (%) (Auto) 10 L 12-44 % Monocytes (%) (Auto) 6 0-12 % Eosinophils (%) (Auto) 1 0-10 % Basophils (%) (Auto) 0 0-10 % Neutrophils # (Auto) 4.9 1.8-7.8 10^3/uL Lymphocytes # (Auto) 0.6 L 1.0-4.0 10^3/uL Monocytes # (Auto) 0.3 0.0-1.0 10^3/uL Eosinophils # (Auto) 0.1 0.0-0.3 10^3/uL Basophils # (Auto) 0.0 0.0-0.1 10^3/uL Immature Granulocyte # (Auto) 0.0 0.0-0.1 10^3/uL Sodium Level 141 135-145 MMOL/L Potassium Level 4.0 3.6-5.0 MMOL/L Chloride Level 107 98-107 MMOL/L Carbon Dioxide Level 23 21-32 MMOL/L Anion Gap 11 5-14 MMOL/L Blood Urea Nitrogen 11 7-18 MG/DL Creatinine 0.84 0.60-1.30 MG/DL Estimat Glomerular Filtration Rate 77 BUN/Creatinine Ratio 13 Glucose Level 116 H 70-105 MG/DL Calcium Level 10.4 H 8.5-10.1 MG/DL Corrected Calcium 10.3 H 8.5-10.1 MG/DL Total Bilirubin 0.3 0.1-1.0 MG/DL Aspartate Amino Transf (AST/SGOT) 11 5-34 U/L Alanine Aminotransferase (ALT/SGPT) 10 0-55 U/L Alkaline Phosphatase 97 40-136 U/L C-Reactive Protein High Sensitivity 1.83 H 0.00-0.50 MG/DL Total Protein 7.8 6.4-8.2 GM/DL Albumin 4.1 3.2-4.5 GM/DL Lipase 27 8-78 U/L Urine Color YELLOW Urine Clarity CLEAR Urine pH 6.0 5-9 Urine Specific [place] <=1.005 1.016-1.022 Urine Protein NEGATIVE NEGATIVE Urine Glucose (UA) NEGATIVE NEGATIVE Urine Ketones NEGATIVE NEGATIVE Urine Nitrite NEGATIVE NEGATIVE Urine Bilirubin NEGATIVE NEGATIVE Urine Urobilinogen 0.2 < = 1.0 MG/DL Urine Leukocyte Esterase NEGATIVE NEGATIVE Urine RBC (Auto) TRACE-I H NEGATIVE Urine RBC RARE /HPF Urine WBC NONE /HPF Urine Squamous Epithelial Cells 0-2 /HPF Urine Crystals NONE /LPF Urine Bacteria TRACE /HPF Urine Casts NONE /LPF Urine Mucus NEGATIVE /LPF Urine Culture Indicated NO My Orders Orders - DANIEL GRULLON MD Cbc With Automated Diff (03/08/23 09:52) Comprehensive Metabolic Panel (03/08/23 09:52) Hs C Reactive Protein (03/08/23 09:52) Lipase (03/08/23 09:52) Ua Culture If Indicated (03/08/23 09:52) Ct Abd/Pelv W (Appendicitis) (03/08/23 09:52) Ed Iv/Invasive Line Start (03/08/23 09:52) Morphine Injection (Morphine Injection (03/08/23 09:52) Iohexol Injection (Omnipaque 350 Mg/Ml 1 (03/08/23 10:00) Received Contrast (Hold Metformin- Contr (03/08/23 10:00) Ns (Ivpb) (Sodium Chloride 0.9% Ivpb Bag (03/08/23 10:00) Medications Given in ED Current Medications Medications Dose Ordered Sig/Jed Route Start Time Stop Time Status Last Admin Dose Admin Iohexol 100 ml ONCE ONCE IV 03/08/23 10:00 03/08/23 10:01 DC 03/08/23 10:18 50 ML Sodium Chloride 100 ml ONCE ONCE IV 03/08/23 10:00 03/08/23 10:01 DC 03/08/23 10:18 80 ML Vital Signs/I&O 03/08/23 09:30 Temp 36.6 Pulse 100 Resp 18 B/P (MAP) 133/92 (106) Pulse Ox 99 O2 Delivery Room Air Blood Pressure Mean: 106 Progress Progress Note : Progress Note 68-year-old female with above history coming in due to lower abdominal pain. ABCs were intact and vitals were stable on presentation. Physical exam with right lower quadrant tenderness but no signs of peritonitis. An IV was placed and labs were obtained and were significant for normal white blood cell count, normal creatinine, slightly elevated CRP. CT abdomen pelvis with no acute abnormalities. She was given morphine for pain control. On repeat exam, no signs of peritonitis. I believe she stable for discharge with outpatient follow-up. She was sent home with strict return precautions Diagnostic Imaging Diagonstic Imaging: CT (abd/pelvis) Comments [facility] [place], [place] NAME: SMILEY [facility] REC#: [id number] PT STATUS: REG ER : 1955 PHYSICIAN: DANIEL GRULLON MD ADMIT DATE: 03/08/23/ER Draft Date of Exam:03/08/23 CT ABD/PELV W (APPENDICITIS) PROCEDURE: CT abdomen and pelvis with contrast, rule out appendicitis. TECHNIQUE: Multiple contiguous axial images were obtained through the abdomen and pelvis after the administration of intravenous contrast. All CT scans use one or more of the following dose optimizing techniques: automated exposure control, MA and/or KvP adjustment based on patient size and exam type or iterative reconstruction. INDICATION: Right lower quadrant pain. Comparison is made with prior CT from 02/08/2023. FINDINGS: The lung bases are clear apart from calcified nodule left lower lobe. No focal liver mass is identified. Gallbladder is unremarkable. There is no biliary ductal dilatation. Pancreas and spleen are unremarkable. No adrenal mass is detected. Kidneys are unremarkable. There is no hydronephrosis. Aorta is heavily calcified but nonaneurysmal. The bowel loops are normal caliber. There is no obstruction. Appendix is visualized in the right lower quadrant and appears unremarkable. There is no CT evidence of acute appendicitis. There is extensive diverticulosis of the sigmoid colon with moderate diverticulosis of the descending colon as well. No definite findings to suggest acute diverticulitis are identified. There is no free fluid or fluid collection. There is no free air. Uterus and bladder are unremarkable. IMPRESSION: 1. No CT evidence of acute appendicitis. 2. Uncomplicated diverticulosis. 3. No acute feature identified. Dictated on workstation # [id number] Dict: 03/08/23 1024 Trans: 03/08/23 1029 [id number] Interpreted by: TIA HUTCHINSON MD Electronically signed by: Departure Impression Primary Impression: Lower abdominal pain Disposition: 01 HOME, SELF-CARE Condition: Stable Departure-Patient Inst. Decision time for Depature: 11:05 Referrals: SHARON SHETTY MD (PCP) Primary Care Physician DIEGO SOTO MD (Family) Primary Care Physician Patient Instructions: Abdominal Pain, Adult ED Add. Discharge Instructions: We do not see any evidence of infection, appendicitis, or anything more concerning on your CT or labs today. Please take Tylenol and if you tolerate you can take ibuprofen as well. It may be helpful to take a stool softener if you are not having frequent bowel movements as this could be a cause of discomfort as well. Please follow-up with your regular doctor if you are not seeing improvement in the next couple of days. Work/School Note: Family Work Note, Patient Received Medical Care In the Emergency Department On: March 08, 2023 Patient Will Be Able to Return to Work/School On: March 09, 2023 Work Release Form Date Seen in the Emergency Department: March 08, 2023 Return to Work: March 09, 2023 Restrictions: No Restrictions DANIEL GRULLON MD March 08, 2023 09:55
[2023-03-08 09:59] LABS: BASOPHILS % (AUTO) 0 % (0-10); EOSINOPHILS # (AUTO) 0.1 10^3/uL (0.0-0.3); EOSINOPHILS % (AUTO) 1 % (0-10); HEMATOCRIT 38 % (35-52); HEMOGLOBIN 12.1 g/dL (11.5-16.0); LYMPHOCYTES # (AUTO) 0.6 10^3/uL (1.0-4.0); LYMPHOCYTES % (AUTO) 10 % (12-44); MEAN CORPUSCULAR HEMOGLOBIN 30 pg (25-34); MEAN CORPUSCULAR HGB CONC 32 g/dL (32-36); MEAN CORPUSCULAR VOLUME 96 fL (80-99); MEAN PLATELET VOLUME 9.4 fL (9.0-12.2); MONOCYTES # (AUTO) 0.3 10^3/uL (0.0-1.0); MONOCYTES % (AUTO) 6 % (0-12); NEUTROPHILS # (AUTO) 4.9 10^3/uL (1.8-7.8); NEUTROPHILS % (AUTO) 83 % (42-75); PLATELET COUNT 430 10^3/uL (130-400)
[2023-03-08] MEDS ORDERED: NS 100 ML (IVPB) BAG IV ONE (10:00)
[2023-03-08] MEDS ORDERED: HOLD METFORMIN - RECEIVED CONTRAST 20 ML VIAL IV SCH (10:00)
[2023-03-08] MEDS ORDERED: IOHEXOL 350 MG/ML 100 ML (OMNIPAQUE 350) VIAL IV ONE (10:00)
[2023-03-08 10:14] LABS: ALBUMIN 4.1 GM/DL (3.2-4.5)
[2023-03-08 10:15] LABS: CALCIUM 10.4 MG/DL (8.5-10.1)
[2023-03-08 10:16] LABS: TOTAL PROTEIN 7.8 GM/DL (6.4-8.2)
[2023-03-08 10:18] LABS: BILIRUBIN,TOTAL 0.3 MG/DL (0.1-1.0)
[2023-03-08 10:20] LABS: CREATININE SERUM 0.84 MG/DL (0.60-1.30)
[2023-03-08 10:20] LABS: BILIRUBIN,URINE NEGATIVE (NEGATIVE); CLARITY,URINE CLEAR; COLOR,URINE YELLOW; GLUCOSE, URINE (UA) NEGATIVE (NEGATIVE); KETONES,URINE NEGATIVE (NEGATIVE); LEUKOCYTE ESTERASE ,URINE NEGATIVE (NEGATIVE); NITRITE,URINE NEGATIVE (NEGATIVE); PROTEIN,URINE NEGATIVE (NEGATIVE)
--- NOTE | 2023-03-08 10:29 | Diagnostic Imaging Report ---
PROCEDURE: CT abdomen and pelvis with contrast, rule out appendicitis. TECHNIQUE: Multiple contiguous axial images were obtained through the abdomen and pelvis after the administration of intravenous contrast. All CT scans use one or more of the following dose optimizing techniques: automated exposure control, MA and/or KvP adjustment based on patient size and exam type or iterative reconstruction. INDICATION: Right lower quadrant pain. Comparison is made with prior CT from 02/08/2023. FINDINGS: The lung bases are clear apart from calcified nodule left lower lobe. No focal liver mass is identified. Gallbladder is unremarkable. There is no biliary ductal dilatation. Pancreas and spleen are unremarkable. No adrenal mass is detected. Kidneys are unremarkable. There is no hydronephrosis. Aorta is heavily calcified but nonaneurysmal. The bowel loops are normal caliber. There is no obstruction. Appendix is visualized in the right lower quadrant and appears unremarkable. There is no CT evidence of acute appendicitis. There is extensive diverticulosis of the sigmoid colon with moderate diverticulosis of the descending colon as well. No definite findings to suggest acute diverticulitis are identified. There is no free fluid or fluid collection. There is no free air. Uterus and bladder are unremarkable. IMPRESSION: 1. No CT evidence of acute appendicitis. 2. Uncomplicated diverticulosis. 3. No acute feature identified. Dictated by: Dictated on workstation # [id number]
[2023-03-08 10:34] LABS: BACTERIA,URINE TRACE /HPF; RBC,URINE RARE /HPF; SQUAMOUS EPITHELIAL CELL,UR 0-2 /HPF
[2023-03-08 11:07] VITALS: BP 115/72
== END 2023-03-08 11:13 | disposition home or self-care (01) ==
LOC: EDUNIT# 09:06 → ER 09:08
DX: R10.31 Right lower quadrant pain (principal); K59.09 Other constipation; Z79.891 Long term (current) use of opiate analgesic; Z28.310 Unvaccinated for COVID-19
CPT/HCPCS: 36415; 74177; 80053; 81000; 83690; 85025; 86141

== ENCOUNTER 2023-03-23 09:31 | Outpatient (RCR) | payer BC, MEDICARE ==
[2023-02-22 10:29] LABS: BASOPHILS % (AUTO) 0 % (0-10); EOSINOPHILS % (AUTO) 0 % (0-10); HEMATOCRIT 34 % (35-52); HEMOGLOBIN 11.1 g/dL (11.5-16.0); LYMPHOCYTES # (AUTO) 0.8 10^3/uL (1.0-4.0); LYMPHOCYTES % (AUTO) 12 % (12-44); MEAN CORPUSCULAR HEMOGLOBIN 31 pg (25-34); MEAN CORPUSCULAR HGB CONC 32 g/dL (32-36); MEAN CORPUSCULAR VOLUME 95 fL (80-99); MEAN PLATELET VOLUME 8.5 fL (9.0-12.2); MONOCYTES # (AUTO) 0.4 10^3/uL (0.0-1.0); MONOCYTES % (AUTO) 7 % (0-12); NEUTROPHILS # (AUTO) 5.3 10^3/uL (1.8-7.8); NEUTROPHILS % (AUTO) 81 % (42-75); PLATELET COUNT 405 10^3/uL (130-400); WHITE BLOOD COUNT 6.5 10^3/uL (4.3-11.0)
[2023-02-22 10:51] LABS: ALBUMIN 3.9 GM/DL (3.2-4.5); BILIRUBIN,TOTAL 0.2 MG/DL (0.1-1.0); CALCIUM 9.5 MG/DL (8.5-10.1); CREATININE SERUM 0.77 MG/DL (0.60-1.30); POTASSIUM 4.3 MMOL/L (3.6-5.0); TOTAL PROTEIN 7.2 GM/DL (6.4-8.2)
[~2023-03-23 09:31] MED LIST changes: +DURVALUMAB IV SCH; +HEParin (CENTRAL IV FLUSH) 500 UNIT/5 ML SYR IV PRN; +NS IV 1000 ML (CANCER CTR) IV SCH; +NS IV SCH
== END 2023-03-24 | disposition home or self-care (01) ==
LOC: ONC 09:31
PROVIDERS: ATTEND Internal Medicine Hematology & Oncology
DX: Z51.11 Encounter for antineoplastic chemotherapy (principal); Z45.2 Encounter for adjustment and management of vascular access device; C34.90 Malignant neoplasm of unspecified part of unspecified bronchus or lung
CPT/HCPCS: 36591; 80053; 85025; 96413

== ENCOUNTER 2023-04-22 09:56 | Outpatient (RCR) | payer BC, MEDICARE ==
[2023-04-06 10:16] LABS: BASOPHILS % (AUTO) 1 % (0-10); EOSINOPHILS % (AUTO) 1 % (0-10); HEMATOCRIT 41 % (35-52); LYMPHOCYTES # (AUTO) 0.8 10^3/uL (1.0-4.0); LYMPHOCYTES % (AUTO) 13 % (12-44); MEAN CORPUSCULAR HEMOGLOBIN 30 pg (25-34); MEAN CORPUSCULAR HGB CONC 32 g/dL (32-36); MEAN CORPUSCULAR VOLUME 93 fL (80-99); MEAN PLATELET VOLUME 9.1 fL (9.0-12.2); MONOCYTES # (AUTO) 0.3 10^3/uL (0.0-1.0); MONOCYTES % (AUTO) 5 % (0-12); NEUTROPHILS # (AUTO) 5.1 10^3/uL (1.8-7.8); NEUTROPHILS % (AUTO) 81 % (42-75); PLATELET COUNT 387 10^3/uL (130-400); WHITE BLOOD COUNT 6.3 10^3/uL (4.3-11.0)
[2023-04-06 10:48] LABS: ALBUMIN 4.4 GM/DL (3.2-4.5); BILIRUBIN,TOTAL 0.4 MG/DL (0.1-1.0); CALCIUM 10.3 MG/DL (8.5-10.1); CREATININE SERUM 0.93 MG/DL (0.60-1.30); POTASSIUM 3.8 MMOL/L (3.6-5.0)
[~2023-04-22 09:56] MED LIST changes: -DURVALUMAB IV SCH; -HEParin (CENTRAL IV FLUSH) 500 UNIT/5 ML SYR IV PRN; -LOSA100T57 PO; +LOSA100T58 PO; -NS IV 1000 ML (CANCER CTR) IV SCH; -NS IV SCH
== END 2023-04-23 | disposition home or self-care (01) ==
LOC: ONC 09:56
PROVIDERS: ATTEND Internal Medicine Hematology & Oncology
DX: C34.81 Malignant neoplasm of overlapping sites of right bronchus and lung (principal)
CPT/HCPCS: 36415; 80053; 85025; 99213

== ENCOUNTER → 2023-05-24 | Outpatient (RCR) | payer BC, MEDICARE ==
[2023-05-11 09:49] LABS: BASOPHILS % (AUTO) 0 % (0-10); EOSINOPHILS % (AUTO) 0 % (0-10); HEMATOCRIT 38 % (35-52); HEMOGLOBIN 12.2 g/dL (11.5-16.0); LYMPHOCYTES # (AUTO) 0.6 10^3/uL (1.0-4.0); LYMPHOCYTES % (AUTO) 10 % (12-44); MEAN CORPUSCULAR HEMOGLOBIN 29 pg (25-34); MEAN CORPUSCULAR HGB CONC 32 g/dL (32-36); MEAN CORPUSCULAR VOLUME 91 fL (80-99); MONOCYTES # (AUTO) 0.3 10^3/uL (0.0-1.0); MONOCYTES % (AUTO) 5 % (0-12); NEUTROPHILS # (AUTO) 5.5 10^3/uL (1.8-7.8); NEUTROPHILS % (AUTO) 85 % (42-75); PLATELET COUNT 417 10^3/uL (130-400); WHITE BLOOD COUNT 6.5 10^3/uL (4.3-11.0)
[2023-05-11 10:19] LABS: ALBUMIN 3.9 GM/DL (3.2-4.5); BILIRUBIN,TOTAL 0.3 MG/DL (0.1-1.0); CREATININE SERUM 0.83 MG/DL (0.60-1.30); TOTAL PROTEIN 7.5 GM/DL (6.4-8.2)
[~2023-05-24] MED LIST changes: +DURVALUMAB IV SCH; +HEParin (CENTRAL IV FLUSH) 500 UNIT/5 ML SYR IV PRN; +NS IV 1000 ML (CANCER CTR) IV SCH; +NS IV SCH
[2023-05-24 11:11] VITALS: BP 118/80
[2023-05-24 11:31] LABS: BASOPHILS % (AUTO) 0 % (0-10); EOSINOPHILS % (AUTO) 0 % (0-10); HEMATOCRIT 38 % (35-52); HEMOGLOBIN 12.2 g/dL (11.5-16.0); LYMPHOCYTES # (AUTO) 0.8 10^3/uL (1.0-4.0); LYMPHOCYTES % (AUTO) 11 % (12-44); MEAN CORPUSCULAR HEMOGLOBIN 29 pg (25-34); MEAN CORPUSCULAR HGB CONC 32 g/dL (32-36); MEAN CORPUSCULAR VOLUME 90 fL (80-99); MEAN PLATELET VOLUME 9.1 fL (9.0-12.2); MONOCYTES # (AUTO) 0.5 10^3/uL (0.0-1.0); MONOCYTES % (AUTO) 6 % (0-12); NEUTROPHILS % (AUTO) 82 % (42-75); PLATELET COUNT 356 10^3/uL (130-400); WHITE BLOOD COUNT 7.4 10^3/uL (4.3-11.0)
[2023-05-24 11:52] LABS: BILIRUBIN,TOTAL 0.2 MG/DL (0.1-1.0); CALCIUM 9.6 MG/DL (8.5-10.1); CREATININE SERUM 0.8 MG/DL (0.60-1.30); POTASSIUM 4.2 MMOL/L (3.6-5.0); TOTAL PROTEIN 7.3 GM/DL (6.4-8.2)
== END | disposition home or self-care (01) ==
LOC: ONC 05-11 09:27
PROVIDERS: ATTEND Internal Medicine Hematology & Oncology
DX: C34.90 Malignant neoplasm of unspecified part of unspecified bronchus or lung (principal)
CPT/HCPCS: 36415; 36591; 80053; 85025; 96413

== ENCOUNTER 2023-06-22 07:40 | Outpatient (RCR) | payer BC, MEDICARE ==
[2023-06-08 11:53] LABS: BASOPHILS % (AUTO) 0 % (0-10); EOSINOPHILS # (AUTO) 0.1 10^3/uL (0.0-0.3); EOSINOPHILS % (AUTO) 1 % (0-10); HEMATOCRIT 43 % (35-52); HEMOGLOBIN 13.5 g/dL (11.5-16.0); LYMPHOCYTES # (AUTO) 0.9 10^3/uL (1.0-4.0); LYMPHOCYTES % (AUTO) 12 % (12-44); MEAN CORPUSCULAR HEMOGLOBIN 28 pg (25-34); MEAN CORPUSCULAR HGB CONC 31 g/dL (32-36); MEAN CORPUSCULAR VOLUME 90 fL (80-99); MEAN PLATELET VOLUME 9.2 fL (9.0-12.2); MONOCYTES # (AUTO) 0.3 10^3/uL (0.0-1.0); MONOCYTES % (AUTO) 5 % (0-12); NEUTROPHILS # (AUTO) 6.3 10^3/uL (1.8-7.8); NEUTROPHILS % (AUTO) 82 % (42-75); PLATELET COUNT 398 10^3/uL (130-400); WHITE BLOOD COUNT 7.6 10^3/uL (4.3-11.0)
[2023-06-08 12:15] LABS: ALBUMIN 4.3 GM/DL (3.2-4.5); BILIRUBIN,TOTAL 0.2 MG/DL (0.1-1.0); CALCIUM 10.3 MG/DL (8.5-10.1); CREATININE SERUM 0.9 MG/DL (0.60-1.30); POTASSIUM 4.5 MMOL/L (3.6-5.0); TOTAL PROTEIN 7.9 GM/DL (6.4-8.2)
[~2023-06-22] VITALS: Ht 157.5 cm; Wt 43.5 kg
[~2023-06-22 07:40] MED LIST changes: -DURVALUMAB IV SCH; -HEParin (CENTRAL IV FLUSH) 500 UNIT/5 ML SYR IV PRN; -NS IV 1000 ML (CANCER CTR) IV SCH; -NS IV SCH
[2023-06-22] MEDS ORDERED: NS IV 1000 ML (CANCER CTR) IV SCH (07:55)
[2023-06-22] MEDS ORDERED: HEParin (CENTRAL IV FLUSH) 500 UNIT/5 ML SYR IV PRN (07:55)
[2023-06-22] MEDS ORDERED: NS IV SCH (07:55)
[2023-06-22] MEDS ORDERED: DURVALUMAB IV SCH (07:55)
[2023-06-22 11:26] LABS: BASOPHILS % (AUTO) 0 % (0-10); EOSINOPHILS % (AUTO) 1 % (0-10); HEMATOCRIT 41 % (35-52); HEMOGLOBIN 12.8 g/dL (11.5-16.0); LYMPHOCYTES % (AUTO) 13 % (12-44); MEAN CORPUSCULAR HEMOGLOBIN 28 pg (25-34); MEAN CORPUSCULAR HGB CONC 31 g/dL (32-36); MEAN CORPUSCULAR VOLUME 90 fL (80-99); MEAN PLATELET VOLUME 9.2 fL (9.0-12.2); MONOCYTES # (AUTO) 0.4 10^3/uL (0.0-1.0); MONOCYTES % (AUTO) 5 % (0-12); NEUTROPHILS # (AUTO) 6.6 10^3/uL (1.8-7.8); NEUTROPHILS % (AUTO) 81 % (42-75); PLATELET COUNT 406 10^3/uL (130-400); WHITE BLOOD COUNT 8.1 10^3/uL (4.3-11.0)
[2023-06-22 11:45] VITALS: BP 127/77
[2023-06-22 11:49] LABS: BILIRUBIN,TOTAL 0.3 MG/DL (0.1-1.0); CALCIUM 9.8 MG/DL (8.5-10.1); CREATININE SERUM 0.83 MG/DL (0.60-1.30); POTASSIUM 4.5 MMOL/L (3.6-5.0); TOTAL PROTEIN 7.3 GM/DL (6.4-8.2)
== END 2023-06-24 | disposition home or self-care (01) ==
LOC: ONC 07:40
PROVIDERS: ATTEND Internal Medicine Hematology & Oncology
DX: C34.91 Malignant neoplasm of unspecified part of right bronchus or lung (principal)
CPT/HCPCS: 80053; 85025; G0463; 36415; 36591; 96413; 99214

== ENCOUNTER → 2023-07-16 | Outpatient (CLI) | payer BC, MEDICARE ==
[~2023-07-16] MED LIST changes: +HOLD METFORMIN - RECEIVED CONTRAST 20 ML VIAL IV SCH; +IOHEXOL 350 MG/ML 100 ML (OMNIPAQUE 350) VIAL IV ONE; +NS 100 ML (IVPB) BAG IV ONE
--- NOTE | 2023-07-16 11:54 | Diagnostic Imaging Report ---
EXAMINATION: CT chest, abdomen and pelvis with intravenous contrast. TECHNIQUE: Multiple contiguous axial images were obtained through the chest, abdomen and pelvis after the uneventful administration of intravenous contrast. All CT scans use one or more of the following dose optimizing techniques: automated exposure control, MA and/or KvP adjustment based on patient size and exam type or iterative reconstruction. HISTORY: Lung cancer. COMPARISON: 02/08/2023 FINDINGS: The right perihilar mass measures 4.0 x 3.5 cm, previously 4.0 x 3.5 cm. There are several new nodules in both upper lobes favored to be inflammatory as a predominantly have a centrilobular and tree-in-bud distribution and measure between three and 5 mm. Lungs are emphysematous. There is atelectasis in the right lower lobe and a calcified granuloma in the left lower lobe. No pneumothorax. No suspicious nodules. There is no axillary or supraclavicular lymphadenopathy. Right hilar soft tissue thickening extending in the subcarinal space similar to prior exam. A left-sided portacatheter is present. Heart size is normal. There are moderate coronary artery calcifications. No pericardial effusion. Aorta is normal in caliber. The liver is normal without focal lesion. There is no biliary ductal dilation. Gallbladder is normal. Pancreas is normal. Spleen is normal. Adrenal glands are normal. The kidneys are normal. There is no hydronephrosis. Urinary bladder is normal. Bowel is normal in caliber without obstruction or inflammation. No free fluid or air. No abdominal or pelvic lymphadenopathy. Aorta is atherosclerotic without aneurysm. There are no suspicious osseous lesions. IMPRESSION: 1. Unchanged right perihilar mass. 2. New centrilobular and tree-in-bud nodules in the upper lobes bilaterally measuring 3 to 5 mm favored to be due to an endobronchial infection. Attention on follow-up recommended. 3. No metastatic disease in the abdomen or pelvis. Dictated by: Dictated on workstation # [id number]
== END ==
LOC: RAD 09:20
PROVIDERS: ATTEND Internal Medicine Hematology & Oncology
DX: C34.90 Malignant neoplasm of unspecified part of unspecified bronchus or lung (principal); R91.8 Other nonspecific abnormal finding of lung field
CPT/HCPCS: 71260; 74177

== ENCOUNTER 2023-08-17 09:45 | Outpatient (RCR) | payer BC, MEDICARE ==
[~2023-08-17 09:45] MED LIST changes: +DURVALUMAB IV SCH; +HEParin (CENTRAL IV FLUSH) 500 UNIT/5 ML SYR IV PRN; -HOLD METFORMIN - RECEIVED CONTRAST 20 ML VIAL IV SCH; -IOHEXOL 350 MG/ML 100 ML (OMNIPAQUE 350) VIAL IV ONE; -NS 100 ML (IVPB) BAG IV ONE; +NS IV 1000 ML (CANCER CTR) IV SCH; +NS IV SCH
[2023-08-17 10:15] LABS: BASOPHILS % (AUTO) 0 % (0-10); EOSINOPHILS # (AUTO) 0.1 10^3/uL (0.0-0.3); EOSINOPHILS % (AUTO) 1 % (0-10); HEMATOCRIT 40 % (35-52); HEMOGLOBIN 12.7 g/dL (11.5-16.0); LYMPHOCYTES # (AUTO) 0.9 10^3/uL (1.0-4.0); LYMPHOCYTES % (AUTO) 11 % (12-44); MEAN CORPUSCULAR HEMOGLOBIN 28 pg (25-34); MEAN CORPUSCULAR HGB CONC 32 g/dL (32-36); MEAN CORPUSCULAR VOLUME 88 fL (80-99); MEAN PLATELET VOLUME 9.4 fL (9.0-12.2); MONOCYTES # (AUTO) 0.4 10^3/uL (0.0-1.0); MONOCYTES % (AUTO) 6 % (0-12); NEUTROPHILS # (AUTO) 6.6 10^3/uL (1.8-7.8); NEUTROPHILS % (AUTO) 82 % (42-75); PLATELET COUNT 360 10^3/uL (130-400)
[2023-08-17 10:27] LABS: ALBUMIN 3.9 GM/DL (3.2-4.5); BILIRUBIN,TOTAL 0.3 MG/DL (0.1-1.0); CALCIUM 9.7 MG/DL (8.5-10.1); CREATININE SERUM 0.87 MG/DL (0.60-1.30); POTASSIUM 4.3 MMOL/L (3.6-5.0); TOTAL PROTEIN 7.3 GM/DL (6.4-8.2)
[2023-08-17 11:02] VITALS: BP 146/95
== END 2023-08-24 11:38 | disposition home or self-care (01) ==
LOC: ONC 09:45
PROVIDERS: ATTEND Internal Medicine Hematology & Oncology
DX: Z51.11 Encounter for antineoplastic chemotherapy (principal); Z45.2 Encounter for adjustment and management of vascular access device; C34.91 Malignant neoplasm of unspecified part of right bronchus or lung
CPT/HCPCS: 36591; 80053; 85025; 96413

== ENCOUNTER 2023-09-14 08:28 | Outpatient (RCR) | payer BC, MEDICARE ==
[~2023-09-14] VITALS: Ht 157.5 cm; Wt 46.3 kg
[2023-09-14 10:13] LABS: BASOPHILS % (AUTO) 0 % (0-10); EOSINOPHILS # (AUTO) 0.1 10^3/uL (0.0-0.3); EOSINOPHILS % (AUTO) 1 % (0-10); HEMATOCRIT 43 % (35-52); HEMOGLOBIN 13.5 g/dL (11.5-16.0); LYMPHOCYTES # (AUTO) 1.2 10^3/uL (1.0-4.0); LYMPHOCYTES % (AUTO) 15 % (12-44); MEAN CORPUSCULAR HEMOGLOBIN 28 pg (25-34); MEAN CORPUSCULAR HGB CONC 32 g/dL (32-36); MEAN CORPUSCULAR VOLUME 88 fL (80-99); MEAN PLATELET VOLUME 9.5 fL (9.0-12.2); MONOCYTES # (AUTO) 0.5 10^3/uL (0.0-1.0); MONOCYTES % (AUTO) 6 % (0-12); NEUTROPHILS # (AUTO) 6.2 10^3/uL (1.8-7.8); NEUTROPHILS % (AUTO) 77 % (42-75); PLATELET COUNT 395 10^3/uL (130-400)
[2023-09-14 10:25] VITALS: BP 103/74
[2023-09-14 10:32] LABS: ALBUMIN 4.1 GM/DL (3.2-4.5)
[2023-09-14 10:33] LABS: POTASSIUM 4.2 MMOL/L (3.6-5.0)
[2023-09-14 10:34] LABS: CALCIUM 9.7 MG/DL (8.5-10.1)
[2023-09-14 10:35] LABS: TOTAL PROTEIN 7.9 GM/DL (6.4-8.2)
[2023-09-14 10:37] LABS: BILIRUBIN,TOTAL 0.3 MG/DL (0.1-1.0)
[2023-09-14 10:38] LABS: CREATININE SERUM 0.83 MG/DL (0.60-1.30)
== END 2023-09-23 | disposition home or self-care (01) ==
LOC: ONC 08:28
PROVIDERS: ATTEND Internal Medicine Hematology & Oncology
DX: Z51.11 Encounter for antineoplastic chemotherapy (principal); Z45.2 Encounter for adjustment and management of vascular access device; C34.91 Malignant neoplasm of unspecified part of right bronchus or lung
CPT/HCPCS: 80053; 85025; 96413; G0463; 36591; 99214